=== PATIENT | male | born 1970 | race Two or more races ===

== ENCOUNTER 2017-03-14 00:08 | Observation (INO) | payer OTHER ==
[~2017-03-14] VITALS: Ht 175.3 cm; Wt 105.3 kg
[~2017-03-14 00:08] MED LIST: ASPI81TA9 PO; CARV6.25 PO; FURO40TA4 PO; GABA-585 PO; INSU300I SQ; LISI2.5T PO; SIMV40TA3 PO
[2017-03-14 00:43] LABS: BASO % 0 % (0-3); EOS % 2 % (0-3); HEMATOCRIT 46.2 % (39.0-53.0); HEMOGLOBIN 15.2 g/dL (13.0-17.5); LYMPH # 2.3 x10^3/uL (1.0-4.8); LYMPH % 25 % (24-48); MEAN CORPUSCULAR HEMOGLOBIN 27 pg (25-35); MEAN CORPUSCULAR HGB CONC 33 g/dL (31-37); MEAN CORPUSCULAR VOLUME 83 fL (79-100); MONO % 8 % (0-9); NEUT % 65 % (31-73); PLATELET COUNT 430 x10^3/uL (140-400); RED CELL DISTRIBUTION WIDTH 17.9 % (11.5-14.5); WHITE BLOOD COUNT 9.2 x10^3/uL (4.0-11.0)
[2017-03-14 00:53] LABS: CALCIUM 8.6 mg/dL (8.5-10.1); CREATININE 1.6 mg/dL (0.7-1.3); GFR 46.6; POTASSIUM 4.8 mmol/L (3.5-5.1)
[2017-03-14 00:58] LABS: ALBUMIN 3.1 g/dL (3.4-5.0); DIRECT BILIRUBIN 0.2 mg/dL (0.0-0.2); TOTAL BILIRUBIN 0.6 mg/dL (0.2-1.0); TOTAL PROTEIN 8.2 g/dL (6.4-8.2)
[2017-03-14] MEDS ORDERED: IPRATRPIUM/ALBUTEROL 0.5/2.5MG 3 ML NEBU. NEB ONE (01:00)
[2017-03-14] MEDS ORDERED: MORPHINE SULFATE 2 MG/ML DISP.SYRIN. IV PRN (02:00)
[2017-03-14] MEDS ORDERED: ONDANSETRON PF 4 MG/2 ML VIAL. IV PRN (02:00)
--- NOTE | 2017-03-14 02:18 | PHYS DOC ---
Past Medical History Past Medical History: CHF, Diabetes-Type II, High Cholesterol, Kidney Infection , [place], Pneumonia, Stroke, Other Additional Past Medical Histor: Abscess Past Surgical History: Other Additional Past Surgical Histo: triple bypass surgery; PICC line Alcohol Use: None Drug Use: None Adult General Chief Complaint Chief Complaint: SHORTNESS OF BREATH HPI HPI 46-year-old male presenting to the emergency department today with worsening shortness of breath with exertion leg swelling and abdominal swelling. This started approximately a week or 2 ago. Location lungs. Duration intermittent. Alleviated by rest. Review of systems is negative for chest pain abdominal pain nausea vomiting or diaphoresis. All other review of systems is negative unless otherwise noted in history of present illness. Review of Systems Review of Systems SEE ABOVE. Current Medications Current Medications Current Medications Medications (Trade) Dose Ordered Sig/Kailyn Start Time Stop Time Status Last Admin Dose Admin Albuterol/ Ipratropium (Duoneb) 3 ml 1X ONCE 03/14/17 01:00 03/14/17 01:01 DC 03/14/17 00:59 3 ML Furosemide (Lasix) 40 mg DAILY 03/14/17 02:30 Morphine Sulfate 2 mg PRN Q2HR PRN 03/14/17 02:00 03/15/17 01:59 Ondansetron HCl (Zofran) 4 mg PRN Q8HRS PRN 03/14/17 02:00 03/15/17 01:59 Allergies Allergies Allergies Coded Allergies Type Severity Reaction Last Updated Verified No Known Drug Allergies 10/16/16 No Physical Exam Physical Exam Constitutional: Well developed, well nourished, no acute distress, non-toxic appearance. HENT: Normocephalic, atraumatic, bilateral external ears normal, oropharynx moist, no oral exudates, nose normal. [] Eyes: PERRLA, EOMI, conjunctiva normal, no discharge. Neck: Normal range of motion, no tenderness, supple, no stridor. [] Cardiovascular:Heart rate regular rhythm, no murmur [] Lungs & Thorax: Crackles in the lungs bilaterally. Abdomen: Abdomen is mildly distended, nontender without rebound tenderness or guarding. Negative McBurney's point. Skin: Warm, dry, no erythema, no rash. [] Back: No tenderness, no CVA tenderness. Extremities: No tenderness, no cyanosis, no clubbing, ROM intact, 3+ edema. Neurologic: Alert and oriented X 3, normal motor function, normal sensory function, no focal deficits noted. Psychologic: Affect normal, judgement normal, mood normal. [] Current Patient Data Vital Signs Vital Signs Date Time Temp Pulse Resp B/P (MAP) Pulse Ox O2 Delivery O2 Flow Rate FiO2 03/14/17 01:00 98 Room Air 03/14/17 00:42 98.6 97 12 121/83 (96) 98.6 Lab Values Laboratory Tests Test 03/14/17 00:34 White Blood Count 9.2 x10^3/uL (4.0-11.0) Red Blood Count 5.60 x10^6/uL (4.30-5.70) Hemoglobin 15.2 g/dL (13.0-17.5) Hematocrit 46.2 % (39.0-53.0) Mean Corpuscular Volume 83 fL (79-100) Mean Corpuscular Hemoglobin 27 pg (25-35) Mean Corpuscular Hemoglobin Concent 33 g/dL (31-37) Red Cell Distribution Width 17.9 % (11.5-14.5) H Platelet Count 430 x10^3/uL (140-400) H Neutrophils (%) (Auto) 65 % (31-73) Lymphocytes (%) (Auto) 25 % (24-48) Monocytes (%) (Auto) 8 % (0-9) Eosinophils (%) (Auto) 2 % (0-3) Basophils (%) (Auto) 0 % (0-3) Neutrophils # (Auto) 5.9 x10^3uL (1.8-7.7) Lymphocytes # (Auto) 2.3 x10^3/uL (1.0-4.8) Monocytes # (Auto) 0.7 x10^3/uL (0.0-1.1) Eosinophils # (Auto) 0.2 x10^3/uL (0.0-0.7) Basophils # (Auto) 0.0 x10^3/uL (0.0-0.2) Sodium Level 139 mmol/L (136-145) Potassium Level 4.8 mmol/L (3.5-5.1) Chloride Level 104 mmol/L (98-107) Carbon Dioxide Level 27 mmol/L (21-32) Anion Gap 8 (6-14) Blood Urea Nitrogen 34 mg/dL (8-26) H Creatinine 1.6 mg/dL (0.7-1.3) H Estimated GFR (Cockcroft-Gault) 46.6 Glucose Level 127 mg/dL (70-99) H Calcium Level 8.6 mg/dL (8.5-10.1) Total Bilirubin 0.6 mg/dL (0.2-1.0) Direct Bilirubin 0.2 mg/dL (0.0-0.2) Aspartate Amino Transferase (AST) 31 U/L (15-37) Alanine Aminotransferase (ALT) 21 U/L (16-63) Alkaline Phosphatase 126 U/L (46-116) H Troponin I Quantitative 0.034 ng/mL (0.000-0.055) OJ-Olw-V-Type Natriuretic Peptide 7630 pg/mL (0-124) H Total Protein 8.2 g/dL (6.4-8.2) Albumin 3.1 g/dL (3.4-5.0) L Lipase 74 U/L (73-393) Laboratory Tests 03/14/17 00:34 Laboratory Tests 03/14/17 00:34 EKG EKG EKG shows sinus rhythm with a regular rate. [place] is mildly leftward. Intervals show normal limits. ST segments show minimal repolarization. Not consistent with ischemia. [] Radiology/Procedures Radiology/Procedures Cardiomegaly present with sternotomy wires. No obvious pneumothorax or infiltrate present. Minimal vascular congestion. Reviewed by myself [] Course & Med Decision Making Course & Med Decision Making Pertinent Labs and Imaging studies reviewed. (See chart for details) [] 41-year-old male presenting the emergency department with worsening shortness of breath pedal edema and abdominal swelling. Vital signs afebrile and saturating well on room air. Pertinent physical exam findings showed crackles in the lungs with a distended abdomen and 3+ edema in the legs. Concern for CHF exacerbation. ProBNP elevated. Otherwise CBC unremarkable. Chemistry panel shows elevated creatinine. Troponin within the reference range of normal. The patient was then admitted for further evaluation workup and care. He received IV diuretics in the emergency department prior to admission. Dragon Disclaimer Dragon Disclaimer This electronic medical record was generated, in whole or in part, using a voice recognition dictation system. Departure Departure Impression: Primary Impression: CHF (congestive heart failure) Additional Impression: Dyspnea Disposition: 09 ADMITTED INPATIENT Admitting Physician: Other (Dr. Balderas) Condition: IMPROVED Referrals: NO PCP (PCP) Problem Qualifiers LUCIO BREWSTER MD March 14, 2017 02:18
[2017-03-14] MEDS: FUROSEMIDE 40 MG/4 ML VIAL. IVP SCH ×2 (02:26→08:02)
--- NOTE | 2017-03-14 02:34 | ACF ---
Admission Forms Criteria HEART FAILURE: COMMON COMPLICATIONS Clinical Indications for Inpatient Care (Place 'X' for any and all applicable criteria): Ongoing inpatient care may be indicated for heart failure with ANY ONE of the following (1)(2)(3)(4)(5): [ ]I. Ongoing need for care for primary condition requiring frequent therapy adjustments because of changes in cardiac function (eg, drug dosage changes for drugs that are renally metabolized) [ ]II. New-onset heart failure [ ]III. Heart failure with decreased urine output not responsive to attempts to optimize volume status [ ]IV. Acute cardiac ischemia causing or associated with failure [X ]V. Complications of heart failure, including ANY ONE of the following: [ ]a) Pericardial effusion [ ]b) Symptomatic pleural effusion [ ]c) O2 saturation <90% or PO2 < 60 mm Hg (8.0 kPa) on room air or require baseline supplemental O2 [ ]d) Tachypnea [X ]e) Dyspnea [ ]f) Syncope [ ]g) Change in mental status [ ]h) Acute renal insufficiency that is severe (reduction of more than 50% in estimated glomerular filtration rate from baseline) or progressive reduction of more than 25% in estimated glomerular filtration rate from baseline, with creatinine continuing to rise) [ ]i) Hemodynamic instability [ ]j) Anasarca [ ]k) Clinically significant metabolic abnormalities due to heart failure (eg, new-onset metabolic acidosis) Extended stay beyond goal length of stay for primary condition may be needed until ALL of the following are present(1)(3): [ ]a) Stable and effective diuretic regimen established (or patient on stable dialysis regimen if in chronic renal failure) [ ]b) Breathing comfortably at rest [ ]c) Saturation of arterial oxygen greater than 90% or at acceptable baseline [ ]d) Pulmonary edema absent or improved [ ]e) Hemodynamic stability [ ]f) Volume status acceptable on oral medication [ ]g) Peripheral or sacral edema absent or improved [ ]h) Renal function stable and manageable at a lower level of care [ ]i) Complications (eg, pleural effusion) resolved or manageable at a lower level of care [ ]j) Patient or caregiver has received written discharge instructions or educational material addressing activity level, diet, discharge medications, follow-up appointment, weight monitoring, and what to do if symptoms worsen The original [facility] content created by [employer] has been revised. The portions of the content which have been revised are identified through the use of italic text or in bold, and [facility] has neither reviewed nor approved the modified material.All other unmodified content is copyright [facility]. Please see references footnoted in the original [facility] edition 2016 Admission Criteria Met?: Yes CONSTANTIN AUSTIN March 14, 2017 02:34
[2017-03-14 03:00] VITALS: BP 135/86
[2017-03-14 07:00] VITALS: BP 123/92
--- NOTE | 2017-03-14 07:53 | RAD ---
Examination: Single frontal view chest History: History of shortness of breath, chest pain Comparison: 10/14/2016 Findings: Mild cardiomegaly is again identified. Minimal prominence of bilateral interstitial lung markings. There is no acute infiltrate or visualized pneumothorax identified. Impression: 1. Mild cardiomegaly with minimal prominent bilateral interstitial lung markings could be mild congestive changes.
[2017-03-14 11:00] VITALS: BP 126/88
[2017-03-14] MEDS ORDERED: FUROSEMIDE 40 MG/4 ML VIAL. IVP ONE (11:15)
[2017-03-14] MEDS ORDERED: METOPROLOL SUCC 24HR ER 25 MG TAB.ER.24H. PO ONE (11:15)
--- NOTE | 2017-03-14 12:06 | CONS ---
DATE OF CONSULTATION: 03/14/2017 REASON FOR CONSULTATION: Heart failure. HISTORY OF PRESENT ILLNESS: The patient is a pleasant 46-year-old gentleman, who presents to the hospital in the setting of dyspnea. He was admitted to the hospital on 10/2016 for zsvfc-zo-ityciea decompensated heart failure. Since then apparently, he has not been taking his medications regularly and has had decreased urine output and also weight gain of considerable amount over the last 3 months. In this setting, he arrived to the hospital and noted to have an elevated BNP greater than 7000 and was given intravenous Lasix and reports he feels better today. In speaking with the patient, he states that he has not really compliant with medications and is off his skip doses unfortunately due to his social situation. He has also been not compliant with dietary restriction such a sodium restriction. PAST MEDICAL HISTORY: 1. Coronary artery disease, status post 3-vessel bypass at [facility] in 2013. 2. Ischemic cardiomyopathy with ejection fraction of 25% on stress testing last year at [facility]. 3. COPD. 4. Peptic ulcer disease. 5. Anxiety. 6. Renal insufficiency, chronic. PAST SURGICAL HISTORY: As noted above. FAMILY HISTORY: He is adopted and his family history is unknown. SOCIAL HISTORY: The patient does smoke less than 1 pack per day. He denies any excessive alcohol use. He does not use illicit drugs. He lives with his friends. He currently has a significant other, who is his girlfriend. HOME CARDIOVASCULAR MEDICATIONS: Currently unknown. REVIEW OF SYSTEMS: Negative for 10 out of 14 systems reviewed, unless otherwise mentioned above in HPI. PHYSICAL EXAMINATION: VITAL SIGNS: Afebrile, 88, 20, 123/92, 98% on 1 liter nasal cannula. GENERAL: He is alert and oriented, in no acute distress. HEAD AND NECK: Unremarkable. CARDIAC: Regular rate and rhythm without any murmurs, rubs or gallops. LUNGS: Clear to auscultation. ABDOMEN: Soft, obese, nontender, nondistended. EXTREMITIES: No clubbing, cyanosis or edema, 2+ radial and dorsalis pedis pulses. NEUROLOGIC: No focal deficits. MUSCULOSKELETAL: No trauma. DIAGNOSTIC STUDIES: Creatinine 1.6, troponin negative x 2, BNP 7630, hemoglobin 15.2, platelets 430. Chest x-ray reveals mild pulmonary vascular congestion. EKG is currently pending. IMPRESSION: 1. Mlavp-om-bqeibta decompensated heart failure in the setting of noncompliance and dietary issues. 2. Ischemic cardiomyopathy with previous stress test revealing fix defects. Currently, cardiac enzymes did not reveal any ischemic pathology. 3. Hypertension. RECOMMENDATIONS: 1. We will attempt to reinitiate a heart failure regimen for him including aspirin, long acting beta blockade and PAOLA inhibitors. We will ultimately also start him on spironolactone and diuretics. 2. The patient wanted to go home today, but he should be monitored overnight and continue diuresis and anticipate discharge in 24 hours. He will either follow up with us or at [facility] and he was given office information. Thank you for this consultation. TUAN VALADEZ MD DR: BOOGIE/michael JOB#: [id number] / [id number] ASAEL
[2017-03-14] MEDS: LISINOPRIL 5 MG TABLET. PO SCH (12:16)
[2017-03-14] MEDS: ASPIRIN ENTERIC COATED 81 MG TABLET.DR. PO SCH (12:16)
[2017-03-14] MEDS: GABAPENTIN 100 MG CAPSULE. PO SCH ×2 (12:16→20:02)
[2017-03-14] MEDS: SPIRONOLACTONE 25 MG TABLET PO SCH (12:17)
[2017-03-14] MEDS: INSULIN DETEMIR 300 UNITS/3 ML INSULN.PEN. SQ SCH (12:24)
--- NOTE | 2017-03-14 12:55 | EKG ---
[facility] [address] [place] [address] Test Date: 2017-03-14 Test Time: 00:34:28 Pat Name: ZOIE ROSARIO Department: Room: 6 1 Gender: Male [place] Consultant: : 1970 Requested By: LUCIO BREWSTER Order Number: [id number] Reading MD: Yung Gorman Measurements Intervals [place] Rate: 96 P: 39 FL: 160 QRS: -47 QRSD: 108 T: 128 QT: 384 QTc: 492 Interpretive Statements SINUS RHYTHM LAFB Electronically Signed On 03-16-2017 9:54:16 CDT by Yung Gorman
[2017-03-14] MEDS: HYDROcodone/APAP 5/325MG 1 TAB TABLET PO PRN ×2 (14:52→20:03)
[2017-03-14 15:00] VITALS: BP 122/85
--- NOTE | 2017-03-14 15:40 | HP ---
ADMIT DATE: 03/14/2017 CHIEF COMPLAINT: Shortness of breath and edema. HISTORY OF PRESENT ILLNESS: The patient is a pleasant middle-aged male who presented with shortness of breath and edema. He has a known previous history of heart failure. He states he thinks he was told he has a 15% ejection fraction. While in the ER, he was noted to have elevated BNP and vascular congestion. We have admitted the patient. He is now being examined on the telemetry floor. We plan to consult Cardiology. PAST MEDICAL HISTORY: Noncompliance, CHF, diabetes, hyperlipidemia, kidney infections, myocardial infarction, pneumonia, stroke, abscesses. PAST SURGICAL HISTORY: Triple bypass surgery. ALLERGIES: None. FAMILY HISTORY: Coronary artery disease. SOCIAL HISTORY: He states he has been incarcerated for many years ____ a lot of his life. He is engaged. He used to smoke. He used to drink. I am not clear on whether he does drugs. REVIEW OF SYSTEMS: GENERAL: No history of weight change, weakness or fevers. SKIN: No bruising, hair changes or rashes. EYES: No blurred, double or loss of vision. NOSE AND THROAT: No history of nosebleeds, hoarseness or sore throat. HEART: No history of palpitations, chest pain or shortness of breath on exertion. LUNGS: He complains of shortness of breath. Denies cough, hemoptysis, or wheezing. GASTROINTESTINAL: Denies changes in appetite, nausea, vomiting, diarrhea or constipation. GENITOURINARY: No history of frequency, urgency, hesitancy or nocturia. NEUROLOGIC: Denies history of numbness, tingling, tremor or weakness. PSYCHIATRIC: No history of panic, anxiety or depression. ENDOCRINE: No history of heat or cold intolerance, polyuria or polydipsia. EXTREMITIES: He complains of edema. Denies muscle weakness, joint pain, pain on walking or stiffness. MEDICATIONS: Reviewed. Please refer to the MRAD. PHYSICAL EXAMINATION: VITAL SIGNS: Temperature afebrile, pulse 67, respirations 18, blood pressure 126/____. GENERAL: He is alert, cooperative. His girlfriend is present. HEART: Normal S1, S2 with a soft S3. LUNGS: Bibasilar crackles. ABDOMEN: Soft, positive bowel sounds. There is ascites. EXTREMITIES: 2+ edema. ENDOCRINE: No thyromegaly. LYMPHATICS: No cervical nodes. HEMATOPOIETIC: No bruising. LABORATORY DATA: BNP 7630. Troponin 0.034. Hematology normal other than a platelet count of 30. ASSESSMENT AND PLAN: Qrcym-vr-jrxvhej systolic and diastolic heart failure. The patient has been admitted. We will consult Cardiology. Serial enzymes, serial EKGs, cardiac monitoring, daily aspirin, continue home medicines, IV diuretics. PROGNOSIS: Guarded. CHANDLER MICHELLE DO DR: NICKO/michael JOB#: [id number] / [id number]
[2017-03-14 19:28] VITALS: BP 111/74
[2017-03-14] MEDS ORDERED: SIMVASTATIN 40 MG TABLET. PO SCH (21:00)
[2017-03-14] MEDS ORDERED: CARVEDILOL 6.25 MG TABLET. PO SCH (21:00)
[2017-03-14 22:37] VITALS: BP 120/76
[2017-03-15 03:33] LABS: BASO # 0.1 x10^3/uL (0.0-0.2); BASO % 1 % (0-3); EOS % 4 % (0-3); HEMATOCRIT 39.6 % (39.0-53.0); LYMPH # 2.5 x10^3/uL (1.0-4.8); LYMPH % 26 % (24-48); MEAN CORPUSCULAR HEMOGLOBIN 27 pg (25-35); MEAN CORPUSCULAR HGB CONC 33 g/dL (31-37); MEAN CORPUSCULAR VOLUME 82 fL (79-100); MONO % 9 % (0-9); NEUT % 60 % (31-73); PLATELET COUNT 380 x10^3/uL (140-400); RED BLOOD COUNT 4.83 x10^6/uL (4.30-5.70); RED CELL DISTRIBUTION WIDTH 17.7 % (11.5-14.5); WHITE BLOOD COUNT 9.6 x10^3/uL (4.0-11.0)
[2017-03-15 03:57] LABS: CALCIUM 8.1 mg/dL (8.5-10.1); CREATININE 1.7 mg/dL (0.7-1.3); GFR 43.4; POTASSIUM 3.9 mmol/L (3.5-5.1)
[2017-03-15 07:00] VITALS: BP 122/89
[2017-03-15] MEDS: ASPIRIN ENTERIC COATED 81 MG TABLET.DR. PO SCH (08:23)
[2017-03-15] MEDS: GABAPENTIN 100 MG CAPSULE. PO SCH (08:24)
[2017-03-15] MEDS: SPIRONOLACTONE 25 MG TABLET PO SCH (08:24)
[2017-03-15] MEDS: LISINOPRIL 5 MG TABLET. PO SCH (08:24)
[2017-03-15 08:25] VITALS: BP 122/89
[2017-03-15] MEDS: INSULIN DETEMIR 300 UNITS/3 ML INSULN.PEN. SQ SCH (08:31)
[2017-03-15] MEDS ORDERED: LISI-338 PO (08:54)
[2017-03-15] MEDS ORDERED: SPIR25TA PO (08:54)
[2017-03-15] MEDS ORDERED: FURO-68 PO (08:54)
[2017-03-15] MEDS ORDERED: GABA-585 PO (08:54)
[2017-03-15] MEDS ORDERED: METO25TA9 PO (08:54)
[2017-03-15] MEDS ORDERED: ASPI81TA2 PO (08:54)
--- NOTE | 2017-03-15 08:58 | PDOC3 ---
Discharge Summary Visit Information Date of Admission: March 14, 2017 Date of Discharge: March 15, 2017 Admitting Diagnosis Comment: 1. Aljik-au-nwtboaq decompensated heart failure in the setting of noncompliance and dietary issues. 2. Ischemic cardiomyopathy with previous stress test revealing fix defects. Currently, cardiac enzymes did not reveal any ischemic pathology. 3. Hypertension. 4. Coronary artery disease, status post 3-vessel bypass at [facility] in 2013. 5. Ischemic cardiomyopathy with ejection fraction of 25% on stress testing last year at [facility]. 6. COPD. 7. Peptic ulcer disease. 8. Anxiety. 9. Renal insufficiency, chronic. Final Diagnosis Problems Medical Problems: (1) CHF (congestive heart failure) Status: Acute (2) Dyspnea Status: Acute Brief Hospital Course Allergies Allergies Coded Allergies Type Severity Reaction Last Updated Verified No Known Drug Allergies 10/16/16 No Vital Signs Vital Signs Date Time Temp Pulse Resp B/P (MAP) Pulse Ox O2 Delivery O2 Flow Rate FiO2 03/15/17 08:25 84 122/89 03/15/17 08:00 Room Air 1.0 03/15/17 07:00 97.4 16 98 97.4 Lab Results Laboratory Tests Test 03/14/17 00:34 03/14/17 07:18 03/14/17 08:00 03/14/17 11:38 White Blood Count 9.2 x10^3/uL (4.0-11.0) Red Blood Count 5.60 x10^6/uL (4.30-5.70) Hemoglobin 15.2 g/dL (13.0-17.5) Hematocrit 46.2 % (39.0-53.0) Mean Corpuscular Volume 83 fL (79-100) Mean Corpuscular Hemoglobin 27 pg (25-35) Mean Corpuscular Hemoglobin Concent 33 g/dL (31-37) Red Cell Distribution Width 17.9 % (11.5-14.5) Platelet Count 430 x10^3/uL (140-400) Neutrophils (%) (Auto) 65 % (31-73) Lymphocytes (%) (Auto) 25 % (24-48) Monocytes (%) (Auto) 8 % (0-9) Eosinophils (%) (Auto) 2 % (0-3) Basophils (%) (Auto) 0 % (0-3) Neutrophils # (Auto) 5.9 x10^3uL (1.8-7.7) Lymphocytes # (Auto) 2.3 x10^3/uL (1.0-4.8) Monocytes # (Auto) 0.7 x10^3/uL (0.0-1.1) Eosinophils # (Auto) 0.2 x10^3/uL (0.0-0.7) Basophils # (Auto) 0.0 x10^3/uL (0.0-0.2) Sodium Level 139 mmol/L (136-145) Potassium Level 4.8 mmol/L (3.5-5.1) Chloride Level 104 mmol/L (98-107) Carbon Dioxide Level 27 mmol/L (21-32) Anion Gap 8 (6-14) Blood Urea Nitrogen 34 mg/dL (8-26) Creatinine 1.6 mg/dL (0.7-1.3) Estimated GFR (Cockcroft-Gault) 46.6 Glucose Level 127 mg/dL (70-99) Calcium Level 8.6 mg/dL (8.5-10.1) Total Bilirubin 0.6 mg/dL (0.2-1.0) Direct Bilirubin 0.2 mg/dL (0.0-0.2) Aspartate Amino Transf (AST/SGOT) 31 U/L (15-37) Alanine Aminotransferase (ALT/SGPT) 21 U/L (16-63) Alkaline Phosphatase 126 U/L (46-116) Troponin I Quantitative 0.034 ng/mL (0.000-0.055) 0.018 ng/mL (0.000-0.055) AG-Okr-I-Type Natriuretic Peptide 7630 pg/mL (0-124) Total Protein 8.2 g/dL (6.4-8.2) Albumin 3.1 g/dL (3.4-5.0) Lipase 74 U/L (73-393) Glucose (Fingerstick) 196 mg/dL (70-99) 175 mg/dL (70-99) Test 03/14/17 13:55 03/14/17 16:25 03/14/17 20:19 03/15/17 03:10 Troponin I Quantitative 0.022 ng/mL (0.000-0.055) Glucose (Fingerstick) 141 mg/dL (70-99) 133 mg/dL (70-99) White Blood Count 9.6 x10^3/uL (4.0-11.0) Red Blood Count 4.83 x10^6/uL (4.30-5.70) Hemoglobin 13.0 g/dL (13.0-17.5) Hematocrit 39.6 % (39.0-53.0) Mean Corpuscular Volume 82 fL (79-100) Mean Corpuscular Hemoglobin 27 pg (25-35) Mean Corpuscular Hemoglobin Concent 33 g/dL (31-37) Red Cell Distribution Width 17.7 % (11.5-14.5) Platelet Count 380 x10^3/uL (140-400) Neutrophils (%) (Auto) 60 % (31-73) Lymphocytes (%) (Auto) 26 % (24-48) Monocytes (%) (Auto) 9 % (0-9) Eosinophils (%) (Auto) 4 % (0-3) Basophils (%) (Auto) 1 % (0-3) Neutrophils # (Auto) 5.7 x10^3uL (1.8-7.7) Lymphocytes # (Auto) 2.5 x10^3/uL (1.0-4.8) Monocytes # (Auto) 0.9 x10^3/uL (0.0-1.1) Eosinophils # (Auto) 0.3 x10^3/uL (0.0-0.7) Basophils # (Auto) 0.1 x10^3/uL (0.0-0.2) Sodium Level 139 mmol/L (136-145) Potassium Level 3.9 mmol/L (3.5-5.1) Chloride Level 105 mmol/L (98-107) Carbon Dioxide Level 25 mmol/L (21-32) Anion Gap 9 (6-14) Blood Urea Nitrogen 38 mg/dL (8-26) Creatinine 1.7 mg/dL (0.7-1.3) Estimated GFR (Cockcroft-Gault) 43.4 Glucose Level 171 mg/dL (70-99) Calcium Level 8.1 mg/dL (8.5-10.1) Test 03/15/17 07:19 Glucose (Fingerstick) 125 mg/dL (70-99) Laboratory Tests Test 03/14/17 11:38 03/14/17 13:55 03/14/17 16:25 03/14/17 20:19 Glucose (Fingerstick) 175 mg/dL (70-99) 141 mg/dL (70-99) 133 mg/dL (70-99) Troponin I Quantitative 0.022 ng/mL (0.000-0.055) Test 03/15/17 03:10 03/15/17 07:19 White Blood Count 9.6 x10^3/uL (4.0-11.0) Red Blood Count 4.83 x10^6/uL (4.30-5.70) Hemoglobin 13.0 g/dL (13.0-17.5) Hematocrit 39.6 % (39.0-53.0) Mean Corpuscular Volume 82 fL (79-100) Mean Corpuscular Hemoglobin 27 pg (25-35) Mean Corpuscular Hemoglobin Concent 33 g/dL (31-37) Red Cell Distribution Width 17.7 % (11.5-14.5) Platelet Count 380 x10^3/uL (140-400) Neutrophils (%) (Auto) 60 % (31-73) Lymphocytes (%) (Auto) 26 % (24-48) Monocytes (%) (Auto) 9 % (0-9) Eosinophils (%) (Auto) 4 % (0-3) Basophils (%) (Auto) 1 % (0-3) Neutrophils # (Auto) 5.7 x10^3uL (1.8-7.7) Lymphocytes # (Auto) 2.5 x10^3/uL (1.0-4.8) Monocytes # (Auto) 0.9 x10^3/uL (0.0-1.1) Eosinophils # (Auto) 0.3 x10^3/uL (0.0-0.7) Basophils # (Auto) 0.1 x10^3/uL (0.0-0.2) Sodium Level 139 mmol/L (136-145) Potassium Level 3.9 mmol/L (3.5-5.1) Chloride Level 105 mmol/L (98-107) Carbon Dioxide Level 25 mmol/L (21-32) Anion Gap 9 (6-14) Blood Urea Nitrogen 38 mg/dL (8-26) Creatinine 1.7 mg/dL (0.7-1.3) Estimated GFR (Cockcroft-Gault) 43.4 Glucose Level 171 mg/dL (70-99) Calcium Level 8.1 mg/dL (8.5-10.1) Glucose (Fingerstick) 125 mg/dL (70-99) Brief Hospital Course is a 46 old [sex] who presented with SOA. Known CHF, CABG at a young age, still has visible scar. Supposed to follow with [facility] but non compliant with meds, NO diuretic, BB, Tino inhib on home med,.Needs all rx upon dc. Just stayed overnight with institution of CHF core meds and significantly better, All rx provided and heavy counselling done, ALso requests inc in gabapentin dose from 100 BID, will inc to 100 TID,. Known DM on insulin, BS ok COnsults: cards Proc; none DispO; home time 34 mins Discharge Information Condition at Discharge: Improved, Stable Follow Up: Weeks ([facility] or cards of choice) Disposition/Orders: D/C to Home Scheduled Carvedilol (Coreg), 1 TAB PO BID, (Reported) Gabapentin (Gabapentin), 100 MG PO BID, (Reported) Insulin Glargine,Hum.rec.anlog (Toujeo Solostar), 15 UNIT SQ DAILY, (Reported) Simvastatin (Simvastatin), 1 TAB PO QHS, (Reported) PAIGE LUNA MD March 15, 2017 08:58
[2017-03-15] MEDS ORDERED: METOPROLOL SUCC 24HR ER 25 MG TAB.ER.24H. PO SCH (09:00)
[2017-03-15] MEDS ORDERED: FUROSEMIDE 40 MG TABLET. PO SCH (09:00)
== END 2017-03-15 12:07 | disposition home or self-care (01) ==
LOC: ER 00:08 → 6 SOUTH 02:00
PROVIDERS: ADMIT Internal Medicine Hematology & Oncology; ATTEND Internal Medicine Hematology & Oncology
DX: I50.43 Acute on chronic combined systolic (congestive) and diastolic (congestive) heart failure (principal); I25.5 Ischemic cardiomyopathy; I13.0 Hypertensive heart and chronic kidney disease with heart failure and stage 1 through stage 4 chronic kidney disease, or unspecified chronic kidney disease; N18.9 Chronic kidney disease, unspecified; I25.10 Atherosclerotic heart disease of native coronary artery without angina pectoris; J44.9 Chronic obstructive pulmonary disease, unspecified; E11.22 Type 2 diabetes mellitus with diabetic chronic kidney disease; F41.9 Anxiety disorder, unspecified; E78.5 Hyperlipidemia, unspecified; E78.00 Pure hypercholesterolemia, unspecified; I25.2 Old myocardial infarction; F17.210 Nicotine dependence, cigarettes, uncomplicated; Z86.73 Personal history of transient ischemic attack (TIA), and cerebral infarction without residual deficits; Z79.4 Long term (current) use of insulin; Z95.1 Presence of aortocoronary bypass graft; Z87.11 Personal history of peptic ulcer disease; Z91.14 Patient's other noncompliance with medication regimen; Z91.19 Patient's noncompliance with other medical treatment and regimen; Z82.49 Family history of ischemic heart disease and other diseases of the circulatory system
CPT/HCPCS: 36415; 71010; 80048; 80076; 82947; 83690; 83880; 84484; 85027; 93005; 94640; 96372; 96374; 96376; 99285; G0378; J1815; J1940; J7620; G0379

== ENCOUNTER 2018-09-04 12:37 | Inpatient (IN) | payer OTHER ==
[~2018-09-04] VITALS: Ht 175.3 cm; Wt 83.9 kg
[~2018-09-04 12:37] MED LIST changes: +ASPI-612 PO; +ASPI-630 PO; -ASPI81TA9 PO; +FURO-68 PO; +LISI-338 PO; +METO-239 PO; +SPIR25TA PO
[2018-09-04] MEDS ORDERED: IV NORMAL SALINE 1000ML BAG 1,000 ML IV SCH (12:59)
[2018-09-04 13:14] LABS: BASO # 0.1 x10^3/uL (0.0-0.2); BASO % 1 % (0-3); EOS # 0.3 x10^3/uL (0.0-0.7); EOS % 4 % (0-3); HEMATOCRIT 48.2 % (39.0-53.0); LYMPH # 1.9 x10^3/uL (1.0-4.8); LYMPH % 25 % (24-48); MEAN CORPUSCULAR HEMOGLOBIN 31 pg (25-35); MEAN CORPUSCULAR HGB CONC 35 g/dL (31-37); MEAN CORPUSCULAR VOLUME 88 fL (79-100); MONO # 0.6 x10^3/uL (0.0-1.1); MONO % 8 % (0-9); NEUT # 4.5 x10^3uL (1.8-7.7); NEUT % 61 % (31-73); PLATELET COUNT 280 x10^3/uL (140-400); RED BLOOD COUNT 5.48 x10^6/uL (4.30-5.70); RED CELL DISTRIBUTION WIDTH 13.4 % (11.5-14.5); WHITE BLOOD COUNT 7.4 x10^3/uL (4.0-11.0)
[2018-09-04 13:20] LABS: AMPHETAMINE/METHAMPHETAMINE POS (NEG); BARBITURATES NEG (NEG); BENZODIAZEPINES NEG (NEG); BILIRUBIN,URINE NEGATIVE (NEG); CANNABINOIDS NEG (NEG); CLARITY,URINE CLEAR; COCAINE NEG (NEG); COLOR,URINE YELLOW; METHADONE NEG (NEG); NITRITE,URINE NEGATIVE (NEG); OPIATES NEG (NEG); PH,URINE 5.5; PHENCYCLIDINE NEG (NEG); PROTEIN,URINE 30 mg/dL (NEG-TRACE); UROBILINOGEN,URINE 0.2 mg/dL (0.2 mg/dL)
[2018-09-04 13:24] LABS: ANION GAP 8 (6-14); BLOOD UREA NITROGEN 22 mg/dL (8-26); BUN/CREATININE RATIO 16 (6-20); CALCIUM 9.3 mg/dL (8.5-10.1); CARBON DIOXIDE 30 mmol/L (21-32); CHLORIDE 98 mmol/L (98-107); CREATININE 1.4 mg/dL (0.7-1.3); GFR 54.1; GLUCOSE 368 mg/dL (70-99); POTASSIUM 4.3 mmol/L (3.5-5.1); SODIUM 136 mmol/L (136-145)
[2018-09-04 13:28] LABS: BACTERIA,URINE FEW /HPF (0-FEW); SQUAMOUS EPITHELIAL CELL,UR OCC /LPF
[2018-09-04 13:31] LABS: ALBUMIN 3.3 g/dL (3.4-5.0); ALBUMIN/GLOBULIN RATIO 0.6 (1.0-1.7); ALK PHOS 122 U/L (46-116); ALT (SGPT) 23 U/L (16-63); AST (SGOT) 15 U/L (15-37); CREATINE KINASE 60 U/L (39-308); LIPASE 225 U/L (73-393); MAGNESIUM 2.2 mg/dL (1.8-2.4); TOTAL BILIRUBIN 0.4 mg/dL (0.2-1.0); TOTAL PROTEIN 8.4 g/dL (6.4-8.2)
--- NOTE | 2018-09-04 13:35 | RAD ---
AP chest. HISTORY: Short of air AP view was taken of the chest. Lungs are clear. Heart is normal in size without heart failure. There is no effusion. The patient had previous bypass surgery. IMPRESSION: 1. No acute chest disease. Electronically signed by: Bassem Azevedo MD (09/04/2018 1:32 PM) [facility]
[2018-09-04 13:56] LABS: BASE EXCESS COOX 1 mmol/L (-3-3); HCO3 COOX 25 mmol/L (21-28); OXYHEMOGLOBIN 96.2 %; PCO2 COOX 40 mmHg (35-46); PO2 COOX 96 mmHg (75-108); SAT O2 COOX 98 % (92-99)
[2018-09-04 14:01] LABS: ACETONE NEG (NEG)
[2018-09-04] MEDS ORDERED: INSULIN REGULAR 100 UNIT/ML 3ML VIAL. IV ONE (14:30)
--- NOTE | 2018-09-04 14:40 | PHYS DOC ---
Past Medical History Past Medical History: CHF, CVA, Diabetes-Type I, Diabetes-Type II, High Cholesterol, Kidney Infection, [place], Pneumonia, Stroke, Other Additional Past Medical Histor: Abscess Past Surgical History: Other Additional Past Surgical Histo: triple bypass surgery; PICC line Alcohol Use: None Drug Use: None Adult General Chief Complaint Chief Complaint: HYPERGLYCEMIA HPI HPI Patient is a 47 year old male presented to ER today for evaluation of blurry vision, body aches, cramping in the lower extremities, general weakness, uncontrolled hypertension, uncontrolled blood sugar issue. Patient has history of insulin-dependent diabetic, history of coronary artery disease, history CHF, history hypertension. Patient had been out of medications for 3 months. Patient denies any chest pain, no abdominal pain, no cough. Review of Systems Review of Systems Constitutional: Denies fever or chills [] Eyes: Denies change in visual acuity, redness, or eye pain [] HENT: Denies nasal congestion or sore throat [] Respiratory: Denies cough or shortness of breath [] Cardiovascular: No additional information not addressed in HPI [] GI: Denies abdominal pain, nausea, vomiting, bloody stools or diarrhea [] : Denies dysuria or hematuria [] Musculoskeletal: Positive for muscle pain, legs cramping Integument: Denies rash or skin lesions [] Neurologic: Denies headache, focal weakness or sensory changes. POSITIVE FOR GENERALIZED WEAKNESS, BLURRY VISION Endocrine: Positive for polyuria and polydipsia [] All other systems were reviewed and found to be within normal limits, except as documented in this note. Current Medications Current Medications Current Medications Medications (Trade) Dose Ordered Sig/Kailyn Start Time Stop Time Status Last Admin Dose Admin Insulin Human Regular (HumuLIN R VIAL) 6 unit 1X ONCE 09/04/18 14:30 09/04/18 14:32 DC 09/04/18 15:29 6 UNIT Ondansetron HCl (Zofran) 4 mg PRN Q8HRS PRN 09/04/18 15:45 09/05/18 15:44 Sodium Chloride 1,000 ml @ 1,000 mls/hr Q1H 09/04/18 12:59 09/04/18 13:58 DC 09/04/18 13:18 1,000 MLS/HR Allergies Allergies Allergies Coded Allergies Type Severity Reaction Last Updated Verified No Known Drug Allergies 10/16/16 No Physical Exam Physical Exam Constitutional: Well developed, well nourished, appeared somnolent. HENT: Normocephalic, atraumatic, bilateral external ears normal, no oral exudates, nose normal, dried oral mucosa. Eyes: PERRLA, EOMI, conjunctiva normal, no discharge. [] Neck: Normal range of motion, no tenderness, supple, no stridor. [] Cardiovascular:Heart rate regular rhythm, no murmur [] Lungs & Thorax: Bilateral breath sounds clear to auscultation [] Abdomen: Bowel sounds normal, soft, no tenderness, no masses, no pulsatile masses. [] Skin: Warm, dry, no erythema, no rash. [] Back: No tenderness, no CVA tenderness. [] Extremities: No tenderness, no cyanosis, no clubbing, ROM intact, no edema. [] Neurologic: Alert and oriented X 3, normal motor function, normal sensory function, no focal deficits noted. [] Psychologic: Affect normal, judgement normal, mood normal. [] Current Patient Data Vital Signs Vital Signs Date Time Temp Pulse Resp B/P (MAP) Pulse Ox O2 Delivery O2 Flow Rate FiO2 09/04/18 15:30 87 20 145/88 (107) 98 Room Air 09/04/18 13:00 97.9 97.9 Lab Values Laboratory Tests Test 09/04/18 12:50 09/04/18 12:59 09/04/18 13:00 Urine Collection Type Unknown Urine Color Yellow Urine Clarity Clear Urine pH 5.5 Urine Specific [place] >=1.030 Urine Protein 30 mg/dL (NEG-TRACE) Urine Glucose (UA) >=1000 mg/dL (NEG) Urine Ketones (Stick) Negative mg/dL (NEG) Urine Blood Small (NEG) Urine Nitrite Negative (NEG) Urine Bilirubin Negative (NEG) Urine Urobilinogen Dipstick 0.2 mg/dL (0.2 mg/dL) Urine Leukocyte Esterase Negative (NEG) Urine RBC 3-5 /HPF (0-2) Urine WBC 1-4 /HPF (0-4) Urine Squamous Epithelial Cells Occ /LPF Urine Bacteria Few /HPF (0-FEW) Urine Mucus Slight /LPF Urine Opiates Screen Neg (NEG) Urine Methadone Screen Neg (NEG) Urine Barbiturates Neg (NEG) Urine Phencyclidine Screen Neg (NEG) Urine Amphetamine/Methamphetamine Pos (NEG) Urine Benzodiazepines Screen Neg (NEG) Urine Cocaine Screen Neg (NEG) Urine Cannabinoids Screen Neg (NEG) Urine Ethyl Alcohol Neg (NEG) O2 Saturation 98 % (92-99) Arterial Blood pH 7.42 (7.35-7.45) Arterial Blood pCO2 at Patient Temp 40 mmHg (35-46) Arterial Blood pO2 at Patient Temp 96 mmHg (75-108) Arterial Blood HCO3 25 mmol/L (21-28) Arterial Blood Base Excess 1 mmol/L (-3-3) Oxyhemoglobin 96.2 % Methemoglobin 0.0 % (0.0-1.9) Carbon Monoxide, Quantitative 1.3 % (0.0-1.9) FiO2 21 White Blood Count 7.4 x10^3/uL (4.0-11.0) Red Blood Count 5.48 x10^6/uL (4.30-5.70) Hemoglobin 17.0 g/dL (13.0-17.5) Hematocrit 48.2 % (39.0-53.0) Mean Corpuscular Volume 88 fL (79-100) Mean Corpuscular Hemoglobin 31 pg (25-35) Mean Corpuscular Hemoglobin Concent 35 g/dL (31-37) Red Cell Distribution Width 13.4 % (11.5-14.5) Platelet Count 280 x10^3/uL (140-400) Neutrophils (%) (Auto) 61 % (31-73) Lymphocytes (%) (Auto) 25 % (24-48) Monocytes (%) (Auto) 8 % (0-9) Eosinophils (%) (Auto) 4 % (0-3) H Basophils (%) (Auto) 1 % (0-3) Neutrophils # (Auto) 4.5 x10^3uL (1.8-7.7) Lymphocytes # (Auto) 1.9 x10^3/uL (1.0-4.8) Monocytes # (Auto) 0.6 x10^3/uL (0.0-1.1) Eosinophils # (Auto) 0.3 x10^3/uL (0.0-0.7) Basophils # (Auto) 0.1 x10^3/uL (0.0-0.2) Prothrombin Time 13.0 SEC (11.7-14.0) Prothrombin Time INR 1.0 (0.8-1.1) Sodium Level 136 mmol/L (136-145) Potassium Level 4.3 mmol/L (3.5-5.1) Chloride Level 98 mmol/L (98-107) Carbon Dioxide Level 30 mmol/L (21-32) Anion Gap 8 (6-14) Blood Urea Nitrogen 22 mg/dL (8-26) Creatinine 1.4 mg/dL (0.7-1.3) H Estimated GFR (Cockcroft-Gault) 54.1 BUN/Creatinine Ratio 16 (6-20) Glucose Level 368 mg/dL (70-99) H Calcium Level 9.3 mg/dL (8.5-10.1) Magnesium Level 2.2 mg/dL (1.8-2.4) Total Bilirubin 0.4 mg/dL (0.2-1.0) Aspartate Amino Transferase (AST) 15 U/L (15-37) Alanine Aminotransferase (ALT) 23 U/L (16-63) Alkaline Phosphatase 122 U/L (46-116) H Creatine Kinase 62 U/L (39-308) Creatine Kinase MB (Mass) 3.3 ng/mL (0.0-3.6) Creatine Kinase MB Relative Index 5.3 % (0-4) H Troponin I Quantitative < 0.017 ng/mL (0.000-0.055) MG-Ysl-Q-Type Natriuretic Peptide 1720 pg/mL (0-124) H Total Protein 8.4 g/dL (6.4-8.2) H Albumin 3.3 g/dL (3.4-5.0) L Albumin/Globulin Ratio 0.6 (1.0-1.7) L Lipase 225 U/L (73-393) Acetone Level Neg (NEG) Laboratory Tests 09/04/18 13:00 Laboratory Tests 09/04/18 13:00 EKG EKG EKG: RATE OF 87 BPM, WPW PATTERN. NO STEMI. Radiology/Procedures Radiology/Procedures [][facility] [address] [place] [address] IMAGING REPORT Signed PATIENT: ZOIE ROSARIO ACCOUNT: [id number] : 1970 LOCATION: ER AGE: 47 SEX: M EXAM STATUS: PRE ER ORD. PHYSICIAN: DEMETRI BRAY DO REASON: soa PROCEDURE: PORTABLE CHEST 1V AP chest. HISTORY: Short of air AP view was taken of the chest. Lungs are clear. Heart is normal in size without heart failure. There is no effusion. The patient had previous bypass surgery. IMPRESSION: 1. No acute chest disease. Electronically signed by: Bassem Azevedo MD (09/04/2018 1:32 PM) [facility] DICTATED and SIGNED BY: BASSEM AZEVEDO MD DATE: 09/04/18 9170 Course & Med Decision Making Course & Med Decision Making Pertinent Labs and Imaging studies reviewed. (See chart for details) [] Dragon Disclaimer Dragon Disclaimer This electronic medical record was generated, in whole or in part, using a voice recognition dictation system. Departure Departure Impression: Primary Impression: Hyperglycemia Additional Impressions: HTN (hypertension) Diabetic neuropathy Disposition: ADMITTED INPATIENT Admitting Physician: Vasquez Valdez Condition: STABLE Referrals: NO PCP (PCP) Problem Qualifiers DEMETRI BRAY DO Sep 04, 2018 14:40
[2018-09-04] MEDS ORDERED: ONDANSETRON PF 4 MG/2 ML VIAL. IV PRN (15:45)
[2018-09-04 17:00] VITALS: BP 113/80
--- NOTE | 2018-09-04 17:35 | EKG ---
[facility] [address] [place] [address] Test Date: 2018-09-04 Test Time: 13:03:21 Pat Name: ZOIE ROSARIO Department: Room: 524 1 Gender: M Billing Supervisor: REX : 1970 Requested By: DEMETRI BRAY Order Number: [id number] Reading MD: Yung Gorman MD Measurements Intervals [place] Rate: 87 P: 59 UT: 134 QRS: -44 QRSD: 132 T: 128 QT: 402 QTc: 484 Interpretive Statements SINUS RHYTHM LEFT ATRIAL ABNORMALITY LAFB PRIOR SEPTAL INFARCT NON-SPECIFIC ST/T CHANGES Electronically Signed On 09-05-2018 15:22:16 STAFFING ACCOUNT MANAGER by Yung Gorman MD
[2018-09-04] MEDS ORDERED: DEXTROSE 50% 25 GM / 50ML DISP.SYRIN. IV PRN (18:30)
[2018-09-04 19:00] VITALS: BP 124/75
--- NOTE | 2018-09-04 19:40 | PDOC1 ---
History and Physical Date of Admission Date of Admission DATE: 09/04/18 TIME: 19:40 Identification/Chief Complaint Chief Complaint SEEN IN ER 47 year old male presented to ER today for evaluation of blurry vision, body aches, cramping in the lower extremities, general weakness, uncontrolled hypertension, uncontrolled blood sugar issue. Patient has history of insulin-dependent diabetic, history of coronary artery disease, history CHF, history hypertension. USING METH out of medications for 3 months. Patient denies any chest pain, no abdominal pain, no cough. Past Medical History Past Medical History Past Medical History Past Medical History: CHF, CVA, Diabetes-Type I, Diabetes-Type II, High Cholesterol, Kidney Infection, [place], Pneumonia, Stroke, Other Additional Past Medical Histor: Abscess Past Surgical History: Other Additional Past Surgical Histo: triple bypass surgery; PICC line Alcohol Use: None Drug Use: METH FAMILY HX HTN Cardiovascular: CAD Pulmonary: COPD GI: Peptic Ulcer disease Heme/Onc: No pertinent hx Hepatobiliary: No pertinent hx Psych: Anxiety Musculoskeletal: low back pain Renal/: Chronic renal insuff Endocrine: No pertinent hx Past Surgical History Past Surgical History: CABG Family History Family History: Adopted Social History Smoke: 1 pack per day ALCOHOL: none Drugs: None, Crystal meth Current Problem List Problem List Problems Medical Problems: (1) Diabetic neuropathy Status: Acute (2) HTN (hypertension) Status: Acute (3) Hyperglycemia Status: Acute Current Medications Current Medications Current Medications Sodium Chloride 1,000 ml @ 1,000 mls/hr Q1H IV Last administered on 09/04/18at 13:18; Start 09/04/18 at 12:59; Stop 09/04/18 at 13:58; Status DC Insulin Human Regular (HumuLIN R VIAL) 6 unit 1X ONCE IV Last administered on 09/04/18at 15:29; Start 09/04/18 at 14:30; Stop 09/04/18 at 14:32; Status DC Ondansetron HCl (Zofran) 4 mg PRN Q8HRS PRN IV NAUSEA/VOMITING; Start 09/04/18 at 15:45; Stop 09/05/18 at 15:44 Insulin Human Lispro (HumaLOG) 0-5 UNITS TIDWMEALS SQ ; Start 09/05/18 at 08:00 Dextrose (Dextrose 50%-Water Syringe) 12.5 gm PRN Q15MIN PRN IV SEE COMMENTS; Start 09/04/18 at 18:30 Active Scripts Active Aldactone (Spironolactone) 25 Mg Tablet 1 Tab PO DAILY Gabapentin 100 Mg Capsule 100 Mg PO TID 60 Days Lisinopril 5 Mg Tablet 1 Tab PO DAILY Lasix (Furosemide) 40 Mg Tablet 1 Tab PO DAILY Metoprolol Succinate ( Xl ) (Metoprolol Succinate) 25 Mg Tab.er.24h 1 Tab PO DAILY Aspirin 81 Mg Tab.chew 1 Tab PO DAILY Reported Yury Lancasternuzhatar (Insulin Glargine,Hum.rec.anlog) 300 Unit/1 Ml Insuln.pen 15 Unit SQ DAILY Simvastatin 40 Mg Tablet 1 Tab PO QHS Allergies Allergies: Coded Allergies: No Known Drug Allergies (Unverified , 10/16/16) ROS General: YES: Fatigue Hematological and Lymphatic: No: Bleeding Problems, Blood Clots, Blood Transfusions, Brusing, Night Sweats, Pallor, Swollen Lymph Nodes, Other Musculoskeletal: Yes Gait Disturbance, Yes Muscle Pain Neurological: Yes Behavorial Changes, Yes Gait Disturbance Physical Exam Physical Exam Review of Systems Review of Systems Constitutional: Denies fever or chills [] Eyes: Denies change in visual acuity, redness, or eye pain [] HENT: Denies nasal congestion or sore throat [] Respiratory: Denies cough or shortness of breath [] Cardiovascular: No additional information not addressed in HPI [] GI: Denies abdominal pain, nausea, vomiting, bloody stools or diarrhea [] : Denies dysuria or hematuria [] Musculoskeletal: Positive for muscle pain, legs cramping SEVERE Integument: Denies rash or skin lesions [] Neurologic: Denies headache, focal weakness or sensory changes. POSITIVE FOR GENERALIZED WEAKNESS, BLURRY VISION Endocrine: Positive for polyuria and polydipsia [] 14 PT systems were reviewed and found to be within normal limits, except as documented Current Medications Current Medications Current Medications Medications (Trade) Dose Ordered Sig/Kailyn Start Time Stop Time Status Last Admin Dose Admin Insulin Human Regular (HumuLIN R VIAL) 6 unit 1X ONCE 09/04/18 14:30 09/04/18 14:32 DC 09/04/18 15:29 6 UNIT Ondansetron HCl (Zofran) 4 mg PRN Q8HRS PRN 09/04/18 15:45 09/05/18 15:44 Sodium Chloride 1,000 ml @ 1,000 mls/hr Q1H 09/04/18 12:59 09/04/18 13:58 DC 09/04/18 13:18 1,000 MLS/HR Allergies Allergies Allergies Coded Allergies Type Severity Reaction Last Updated Verified No Known Drug Allergies 10/16/16 No Physical Exam Physical Exam Constitutional: Well developed, well nourished, appeared somnolent. HENT: Normocephalic, atraumatic, bilateral external ears normal, no oral exudates, nose normal, dried oral mucosa. Eyes: PERRLA, EOMI, conjunctiva normal, no discharge. [] Neck: Normal range of motion, no tenderness, supple, no stridor. [] Cardiovascular:Heart rate regular rhythm, no murmur [] Lungs & Thorax: Bilateral breath sounds clear to auscultation [] Abdomen: Bowel sounds normal, soft, no tenderness, no masses, no pulsatile masses. [] Skin: Warm, dry, no erythema, no rash. [] Back: No tenderness, no CVA tenderness. [] Extremities: No tenderness, no cyanosis, no clubbing, ROM intact, no edema. [] Neurologic: Alert and oriented X 3, normal motor function, normal sensory function, no focal deficits noted. [] Psychologic: Affect ANXIOUS, judgement POOR mood normal. [] General: Alert, Oriented X3, Cooperative, moderate distress HEENT: EOMI Heart: RRR, no gallops Breasts: Not examined Abdomen: Soft Rectal Exam: not examined Neuro: Normal speech, Cranial nerves 3-12 NL Vitals Vitals Vital Signs Date Time Temp Pulse Resp B/P (MAP) Pulse Ox O2 Delivery O2 Flow Rate FiO2 09/04/18 17:30 Room Air 09/04/18 17:00 98.4 89 18 113/80 (91) 98 98.4 Labs Labs Laboratory Tests Test 09/04/18 12:50 09/04/18 12:59 09/04/18 13:00 09/04/18 16:27 Urine Collection Type Unknown Urine Color Yellow Urine Clarity Clear Urine pH 5.5 Urine Specific [place] >=1.030 Urine Protein 30 mg/dL (NEG-TRACE) Urine Glucose (UA) >=1000 mg/dL (NEG) Urine Ketones (Stick) Negative mg/dL (NEG) Urine Blood Small (NEG) Urine Nitrite Negative (NEG) Urine Bilirubin Negative (NEG) Urine Urobilinogen Dipstick 0.2 mg/dL (0.2 mg/dL) Urine Leukocyte Esterase Negative (NEG) Urine RBC 3-5 /HPF (0-2) Urine WBC 1-4 /HPF (0-4) Urine Squamous Epithelial Cells Occ /LPF Urine Bacteria Few /HPF (0-FEW) Urine Mucus Slight /LPF Urine Opiates Screen Neg (NEG) Urine Methadone Screen Neg (NEG) Urine Barbiturates Neg (NEG) Urine Phencyclidine Screen Neg (NEG) Urine Amphetamine/Methamphetamine Pos (NEG) Urine Benzodiazepines Screen Neg (NEG) Urine Cocaine Screen Neg (NEG) Urine Cannabinoids Screen Neg (NEG) Urine Ethyl Alcohol Neg (NEG) O2 Saturation 98 % (92-99) Arterial Blood pH 7.42 (7.35-7.45) Arterial Blood pCO2 at Patient Temp 40 mmHg (35-46) Arterial Blood pO2 at Patient Temp 96 mmHg (75-108) Arterial Blood HCO3 25 mmol/L (21-28) Arterial Blood Base Excess 1 mmol/L (-3-3) Oxyhemoglobin 96.2 % Methemoglobin 0.0 % (0.0-1.9) Carbon Monoxide, Quantitative 1.3 % (0.0-1.9) FiO2 21 White Blood Count 7.4 x10^3/uL (4.0-11.0) Red Blood Count 5.48 x10^6/uL (4.30-5.70) Hemoglobin 17.0 g/dL (13.0-17.5) Hematocrit 48.2 % (39.0-53.0) Mean Corpuscular Volume 88 fL (79-100) Mean Corpuscular Hemoglobin 31 pg (25-35) Mean Corpuscular Hemoglobin Concent 35 g/dL (31-37) Red Cell Distribution Width 13.4 % (11.5-14.5) Platelet Count 280 x10^3/uL (140-400) Neutrophils (%) (Auto) 61 % (31-73) Lymphocytes (%) (Auto) 25 % (24-48) Monocytes (%) (Auto) 8 % (0-9) Eosinophils (%) (Auto) 4 % (0-3) Basophils (%) (Auto) 1 % (0-3) Neutrophils # (Auto) 4.5 x10^3uL (1.8-7.7) Lymphocytes # (Auto) 1.9 x10^3/uL (1.0-4.8) Monocytes # (Auto) 0.6 x10^3/uL (0.0-1.1) Eosinophils # (Auto) 0.3 x10^3/uL (0.0-0.7) Basophils # (Auto) 0.1 x10^3/uL (0.0-0.2) Prothrombin Time 13.0 SEC (11.7-14.0) Prothromb Time International Ratio 1.0 (0.8-1.1) Sodium Level 136 mmol/L (136-145) Potassium Level 4.3 mmol/L (3.5-5.1) Chloride Level 98 mmol/L (98-107) Carbon Dioxide Level 30 mmol/L (21-32) Anion Gap 8 (6-14) Blood Urea Nitrogen 22 mg/dL (8-26) Creatinine 1.4 mg/dL (0.7-1.3) Estimated GFR (Cockcroft-Gault) 54.1 BUN/Creatinine Ratio 16 (6-20) Glucose Level 368 mg/dL (70-99) Glucose (Fingerstick) 397 mg/dL (70-99) 161 mg/dL (70-99) Calcium Level 9.3 mg/dL (8.5-10.1) Magnesium Level 2.2 mg/dL (1.8-2.4) Total Bilirubin 0.4 mg/dL (0.2-1.0) Aspartate Amino Transf (AST/SGOT) 15 U/L (15-37) Alanine Aminotransferase (ALT/SGPT) 23 U/L (16-63) Alkaline Phosphatase 122 U/L (46-116) Creatine Kinase 62 U/L (39-308) Creatine Kinase MB (Mass) 3.3 ng/mL (0.0-3.6) Creatine Kinase MB Relative Index 5.3 % (0-4) Troponin I Quantitative < 0.017 ng/mL (0.000-0.055) MM-[id number]-Type Natriuretic Peptide 1720 pg/mL (0-124) Total Protein 8.4 g/dL (6.4-8.2) Albumin 3.3 g/dL (3.4-5.0) Albumin/Globulin Ratio 0.6 (1.0-1.7) Lipase 225 U/L (73-393) Acetone Level Neg (NEG) Test 09/04/18 17:19 Glucose (Fingerstick) 123 mg/dL (70-99) Laboratory Tests Test 09/04/18 12:50 09/04/18 12:59 09/04/18 13:00 09/04/18 16:27 Urine Collection Type Unknown Urine Color Yellow Urine Clarity Clear Urine pH 5.5 Urine Specific [place] >=1.030 Urine Protein 30 mg/dL (NEG-TRACE) Urine Glucose (UA) >=1000 mg/dL (NEG) Urine Ketones (Stick) Negative mg/dL (NEG) Urine Blood Small (NEG) Urine Nitrite Negative (NEG) Urine Bilirubin Negative (NEG) Urine Urobilinogen Dipstick 0.2 mg/dL (0.2 mg/dL) Urine Leukocyte Esterase Negative (NEG) Urine RBC 3-5 /HPF (0-2) Urine WBC 1-4 /HPF (0-4) Urine Squamous Epithelial Cells Occ /LPF Urine Bacteria Few /HPF (0-FEW) Urine Mucus Slight /LPF Urine Opiates Screen Neg (NEG) Urine Methadone Screen Neg (NEG) Urine Barbiturates Neg (NEG) Urine Phencyclidine Screen Neg (NEG) Urine Amphetamine/Methamphetamine Pos (NEG) Urine Benzodiazepines Screen Neg (NEG) Urine Cocaine Screen Neg (NEG) Urine Cannabinoids Screen Neg (NEG) Urine Ethyl Alcohol Neg (NEG) O2 Saturation 98 % (92-99) Arterial Blood pH 7.42 (7.35-7.45) Arterial Blood pCO2 at Patient Temp 40 mmHg (35-46) Arterial Blood pO2 at Patient Temp 96 mmHg (75-108) Arterial Blood HCO3 25 mmol/L (21-28) Arterial Blood Base Excess 1 mmol/L (-3-3) Oxyhemoglobin 96.2 % Methemoglobin 0.0 % (0.0-1.9) Carbon Monoxide, Quantitative 1.3 % (0.0-1.9) FiO2 21 White Blood Count 7.4 x10^3/uL (4.0-11.0) Red Blood Count 5.48 x10^6/uL (4.30-5.70) Hemoglobin 17.0 g/dL (13.0-17.5) Hematocrit 48.2 % (39.0-53.0) Mean Corpuscular Volume 88 fL (79-100) Mean Corpuscular Hemoglobin 31 pg (25-35) Mean Corpuscular Hemoglobin Concent 35 g/dL (31-37) Red Cell Distribution Width 13.4 % (11.5-14.5) Platelet Count 280 x10^3/uL (140-400) Neutrophils (%) (Auto) 61 % (31-73) Lymphocytes (%) (Auto) 25 % (24-48) Monocytes (%) (Auto) 8 % (0-9) Eosinophils (%) (Auto) 4 % (0-3) Basophils (%) (Auto) 1 % (0-3) Neutrophils # (Auto) 4.5 x10^3uL (1.8-7.7) Lymphocytes # (Auto) 1.9 x10^3/uL (1.0-4.8) Monocytes # (Auto) 0.6 x10^3/uL (0.0-1.1) Eosinophils # (Auto) 0.3 x10^3/uL (0.0-0.7) Basophils # (Auto) 0.1 x10^3/uL (0.0-0.2) Prothrombin Time 13.0 SEC (11.7-14.0) Prothromb Time International Ratio 1.0 (0.8-1.1) Sodium Level 136 mmol/L (136-145) Potassium Level 4.3 mmol/L (3.5-5.1) Chloride Level 98 mmol/L (98-107) Carbon Dioxide Level 30 mmol/L (21-32) Anion Gap 8 (6-14) Blood Urea Nitrogen 22 mg/dL (8-26) Creatinine 1.4 mg/dL (0.7-1.3) Estimated GFR (Cockcroft-Gault) 54.1 BUN/Creatinine Ratio 16 (6-20) Glucose Level 368 mg/dL (70-99) Glucose (Fingerstick) 397 mg/dL (70-99) 161 mg/dL (70-99) Calcium Level 9.3 mg/dL (8.5-10.1) Magnesium Level 2.2 mg/dL (1.8-2.4) Total Bilirubin 0.4 mg/dL (0.2-1.0) Aspartate Amino Transf (AST/SGOT) 15 U/L (15-37) Alanine Aminotransferase (ALT/SGPT) 23 U/L (16-63) Alkaline Phosphatase 122 U/L (46-116) Creatine Kinase 62 U/L (39-308) Creatine Kinase MB (Mass) 3.3 ng/mL (0.0-3.6) Creatine Kinase MB Relative Index 5.3 % (0-4) Troponin I Quantitative < 0.017 ng/mL (0.000-0.055) [id number]-Type Natriuretic Peptide 1720 pg/mL (0-124) Total Protein 8.4 g/dL (6.4-8.2) Albumin 3.3 g/dL (3.4-5.0) Albumin/Globulin Ratio 0.6 (1.0-1.7) Lipase 225 U/L (73-393) Acetone Level Neg (NEG) Test 09/04/18 17:19 Glucose (Fingerstick) 123 mg/dL (70-99) VTE Prophylaxis Ordered VTE Prophylaxis Devices: No VTE Pharmacological Prophylaxi: Yes Assessment/Plan Assessment/Plan IMPRESSION HYPERTENSIVE URGENCY NONCOMPLIANCE METH ABUSE CHF exacerbation, systolic NYHA III HX CArdiomyopathy with low EF UNCONTROLLED DIABETES PLAN TELE BP CONTROL IV MEDS ENALAPRIL PRN SS INSULIN LYTES, MG RESTART HOME MEDS MARIBEL HERRERA MD Sep 04, 2018 19:40
[2018-09-04] MEDS: GABAPENTIN 100 MG CAPSULE. PO SCH (21:18)
[2018-09-04] MEDS: SIMVASTATIN 20 MG TABLET PO SCH (21:18)
[2018-09-04 22:46] VITALS: BP 119/81
[2018-09-05] VITALS (8 sets, daily range): BP systolic 100–125; BP diastolic 56–77
[2018-09-05 05:14] LABS: BASO # 0.1 x10^3/uL (0.0-0.2); BASO % 1 % (0-3); EOS # 0.4 x10^3/uL (0.0-0.7); EOS % 4 % (0-3); HEMATOCRIT 46.5 % (39.0-53.0); LYMPH # 2.6 x10^3/uL (1.0-4.8); LYMPH % 30 % (24-48); MEAN CORPUSCULAR HEMOGLOBIN 31 pg (25-35); MEAN CORPUSCULAR HGB CONC 34 g/dL (31-37); MEAN CORPUSCULAR VOLUME 90 fL (79-100); MONO # 0.6 x10^3/uL (0.0-1.1); MONO % 6 % (0-9); NEUT # 5.1 x10^3uL (1.8-7.7); NEUT % 59 % (31-73); PLATELET COUNT 260 x10^3/uL (140-400); RED BLOOD COUNT 5.16 x10^6/uL (4.30-5.70); RED CELL DISTRIBUTION WIDTH 13.6 % (11.5-14.5); WHITE BLOOD COUNT 8.7 x10^3/uL (4.0-11.0)
[2018-09-05 05:17] LABS: CALCIUM 8.6 mg/dL (8.5-10.1); CREATININE 1.2 mg/dL (0.7-1.3); GFR 64.6; POTASSIUM 3.9 mmol/L (3.5-5.1)
[2018-09-05] MEDS: ENALAPRILAT 1.25 MG/ML VIAL. IVP SCH ×2 (06:35)
[2018-09-05] MEDS ORDERED: INSULIN LISPRO 300 UNITS/3 ML INSULN.PEN. SQ SCH (08:00)
[2018-09-05] MEDS: FUROSEMIDE 40 MG TABLET. PO SCH (08:01)
[2018-09-05] MEDS: LISINOPRIL 5 MG TABLET. PO SCH ×2 (09:00→13:36)
[2018-09-05] MEDS ORDERED: glyBURIDE 5 MG TABLET PO SCH (09:00)
[2018-09-05] MEDS ORDERED: FUROSEMIDE 40 MG/4 ML VIAL. IVP SCH (09:00)
[2018-09-05] MEDS: SPIRONOLACTONE 25 MG TABLET PO SCH ×2 (09:00→13:35)
[2018-09-05] MEDS ORDERED: INSULIN GLARGINE 300 UNITS/3 ML INSULN.PEN. SQ SCH (09:00)
[2018-09-05] MEDS: METOPROLOL SUCC 24HR ER 25 MG TAB.ER.24H. PO SCH ×2 (09:00→17:02)
[2018-09-05] MEDS ORDERED: DEXTROSE 50% 25 GM / 50ML DISP.SYRIN. IV PRN (09:00)
[2018-09-05] MEDS: GABAPENTIN 100 MG CAPSULE. PO SCH ×3 (09:12→21:07)
[2018-09-05] MEDS: ASPIRIN CHEWABLE 81 MG TABLET. PO SCH (09:13)
--- NOTE | 2018-09-05 09:33 | CARD ---
MR#: [id number] Date of Study: 09/05/2018 Ordering Physician: MARIBEL HERRERA, Referring Physician: MARIBEL HERRERA Tech: Lisa Faustin RDCS APPROVED REPORT EXAM: Two-dimensional and M-mode echocardiogram with Doppler and color Doppler. Other Information Quality : Fair INDICATION Congestive Heart Failure Surgery/Intervention CABG: Date: 2013 2D DIMENSIONS Left Atrium(2D)3.4 (1.6-4.0cm)IVSd0.8 (0.7-1.1cm) Aortic Root(2D)3.2 (2.0-3.7cm)LVDd5.8 (3.9-5.9cm) LVOT Diameter2.0 (1.8-2.4cm)PWd0.8 (0.7-1.1cm) LVDs5.5 (2.5-4.0cm)FS (%) 4.9 % SV17.8 ml Aortic Valve AoV Peak Monico.103.0cm/sAoV VTI17.2cm AO Peak GR.4.2mmHgLVOT Peak Monico.58.3cm/s AO Mean GR.3mmHgAVA (VMAX)1.82cm2 AI P 1/2 [id number] Mitral Valve MV E Zjwgzuvy50.2cm/sMV DECEL [id number] MV A Iursguvn959.4cm/sE/A Ratio0.8 Tricuspid Valve TR P. Flxuduwp548ex/sRAP VPOQSXKR1zaNw TR Peak Gr.42jbMrMKEK30qrFy Pulmonary Vein S1 Jrgvkdhv41.7cm/sD2 Pcxdbuvu71.9cm/s LEFT VENTRICLE The Left Ventricle is moderate to severely dilated. There is normal left ventricular wall thickness. Left ventricle ejection fraction is severely impaired. The Ejection Fraction is 15-20%. There is yovana re global hypokinesis of the left ventricle. Transmitral Doppler flow pattern is Grade I-abnormal rel axation pattern. No left ventricle thrombus noted on this study. RIGHT VENTRICLE The right ventricle is normal size. The right ventricular systolic function is normal. ATRIA The left atrium size is normal. The right atrium size is normal. The interatrial septum is intact wit h no evidence for an atrial septal defect or patent foramen ovale as noted on 2-D or Doppler imaging. AORTIC VALVE The aortic valve is normal in structure and function. Doppler and Color Flow revealed trace aortic re gurgitation. There is no significant aortic valvular stenosis. MITRAL VALVE The mitral valve is normal in structure and function. There is no evidence of mitral valve prolapse. There is no mitral valve stenosis. Doppler and Color Flow revealed no mitral valve regurgitation note d. TRICUSPID VALVE The tricuspid valve is normal in structure and function. Doppler and Color Flow revealed trace tricus pid regurgitation. The PA pressure was estimated at 28 mmHg. There is no tricuspid valve stenosis. PULMONIC VALVE The pulmonic valve is not well visualized. Doppler and Color Flow revealed no pulmonic valvular regur gitation. There is no pulmonic valvular stenosis. GREAT VESSELS The aortic root is normal in size. The ascending aorta is normal in size. The IVC is normal in size a nd collapses >50% with inspiration. PERICARDIAL EFFUSION There is no evidence of significant pericardial effusion. Critical Notification Critical Value: No <Conclusion> The Left Ventricle is moderate to severely dilated. Left ventricle ejection fraction is severely impaired. The Ejection Fraction is 15-20%. There is severe global hypokinesis of the left ventricle. There is no significant aortic valvular stenosis. Doppler and Color Flow revealed trace aortic regurgitation. Doppler and Color Flow revealed no mitral valve regurgitation noted. Doppler and Color Flow revealed trace tricuspid regurgitation. The PA pressure was estimated at 28 mmHg. Signed by : Ramon Jean Baptiste MD Electronically Approved : 09/05/2018 09:32:40
--- NOTE | 2018-09-05 10:40 | PDOC ---
PROGRESS NOTES Chief Complaint Chief Complaint HYPERTENSIVE URGENCY NONCOMPLIANCE - off meds x 3 months METH ABUSE CHF exacerbation, systolic NYHA III HX CArdiomyopathy with low EF 15-20% - echo 09/05/18 UNCONTROLLED DIABETES with last hgba1c 8 in 2015 History of Present Illness History of Present Illness Patient admits to off medications for 3 months because he was evicted in his house He complains of neuropathy in both feet-on gabapentin 100mg 3 times a day Blood pressure is much better-home meds colleague has resumed Colleague has also ordered an echo and showed an EF of 15-20% Blood sugars still uncontrolled, hemoglobin A1c is 8 in 2016 Unknown hemoglobin A1c currently Called by RN this morning for a blood sugar 386 breakfast Plan: Continue Lantus long-acting during the morning, his home regimen I do not see a contraindication in starting glyburide twice a day - so I did that I will see if we need to add metformin, I was not able to elicit kidney issues or drinking history-metformin might be a good addition to his insulin regimen Continue gabapentin 100mg 3 times a day I did consult cardiology because of that low EF 15-20% on echocardiogram 09/05/18 ABGs education and counseling done today, especially about prognosis of uncontrolled diabetes Significant time in the room 35 minutes, greater than 60% education about uncontrolled diabetes and uncontrolled hypertension Vitals Vitals Vital Signs Date Time Temp Pulse Resp B/P (MAP) Pulse Ox O2 Delivery O2 Flow Rate FiO2 09/05/18 07:25 98.1 77 16 105/72 (83) 98 Room Air 98.1 Physical Exam General: Alert, Oriented X3, Cooperative, No acute distress, moderate distress Heart: Regular rate, Normal S1, Normal S2, No murmurs Lungs: Clear, Crackles Abdomen: Soft, No tenderness, No hepatosplenomegaly Extremities: No clubbing, No cyanosis Skin: No rashes, No breakdown, No significant lesion Labs LABS Laboratory Tests Test 09/04/18 12:50 09/04/18 12:59 09/04/18 13:00 09/04/18 16:27 Urine Collection Type Unknown Urine Color Yellow Urine Clarity Clear Urine pH 5.5 Urine Specific [place] >=1.030 Urine Protein 30 mg/dL (NEG-TRACE) Urine Glucose (UA) >=1000 mg/dL (NEG) Urine Ketones (Stick) Negative mg/dL (NEG) Urine Blood Small (NEG) Urine Nitrite Negative (NEG) Urine Bilirubin Negative (NEG) Urine Urobilinogen Dipstick 0.2 mg/dL (0.2 mg/dL) Urine Leukocyte Esterase Negative (NEG) Urine RBC 3-5 /HPF (0-2) Urine WBC 1-4 /HPF (0-4) Urine Squamous Epithelial Cells Occ /LPF Urine Bacteria Few /HPF (0-FEW) Urine Mucus Slight /LPF Urine Opiates Screen Neg (NEG) Urine Methadone Screen Neg (NEG) Urine Barbiturates Neg (NEG) Urine Phencyclidine Screen Neg (NEG) Urine Amphetamine/Methamphetamine Pos (NEG) Urine Benzodiazepines Screen Neg (NEG) Urine Cocaine Screen Neg (NEG) Urine Cannabinoids Screen Neg (NEG) Urine Ethyl Alcohol Neg (NEG) O2 Saturation 98 % (92-99) Arterial Blood pH 7.42 (7.35-7.45) Arterial Blood pCO2 at Patient Temp 40 mmHg (35-46) Arterial Blood pO2 at Patient Temp 96 mmHg (75-108) Arterial Blood HCO3 25 mmol/L (21-28) Arterial Blood Base Excess 1 mmol/L (-3-3) Oxyhemoglobin 96.2 % Methemoglobin 0.0 % (0.0-1.9) Carbon Monoxide, Quantitative 1.3 % (0.0-1.9) FiO2 21 White Blood Count 7.4 x10^3/uL (4.0-11.0) Red Blood Count 5.48 x10^6/uL (4.30-5.70) Hemoglobin 17.0 g/dL (13.0-17.5) Hematocrit 48.2 % (39.0-53.0) Mean Corpuscular Volume 88 fL (79-100) Mean Corpuscular Hemoglobin 31 pg (25-35) Mean Corpuscular Hemoglobin Concent 35 g/dL (31-37) Red Cell Distribution Width 13.4 % (11.5-14.5) Platelet Count 280 x10^3/uL (140-400) Neutrophils (%) (Auto) 61 % (31-73) Lymphocytes (%) (Auto) 25 % (24-48) Monocytes (%) (Auto) 8 % (0-9) Eosinophils (%) (Auto) 4 % (0-3) Basophils (%) (Auto) 1 % (0-3) Neutrophils # (Auto) 4.5 x10^3uL (1.8-7.7) Lymphocytes # (Auto) 1.9 x10^3/uL (1.0-4.8) Monocytes # (Auto) 0.6 x10^3/uL (0.0-1.1) Eosinophils # (Auto) 0.3 x10^3/uL (0.0-0.7) Basophils # (Auto) 0.1 x10^3/uL (0.0-0.2) Prothrombin Time 13.0 SEC (11.7-14.0) Prothromb Time International Ratio 1.0 (0.8-1.1) Sodium Level 136 mmol/L (136-145) Potassium Level 4.3 mmol/L (3.5-5.1) Chloride Level 98 mmol/L (98-107) Carbon Dioxide Level 30 mmol/L (21-32) Anion Gap 8 (6-14) Blood Urea Nitrogen 22 mg/dL (8-26) Creatinine 1.4 mg/dL (0.7-1.3) Estimated GFR (Cockcroft-Gault) 54.1 BUN/Creatinine Ratio 16 (6-20) Glucose Level 368 mg/dL (70-99) Glucose (Fingerstick) 397 mg/dL (70-99) 161 mg/dL (70-99) Calcium Level 9.3 mg/dL (8.5-10.1) Magnesium Level 2.2 mg/dL (1.8-2.4) Total Bilirubin 0.4 mg/dL (0.2-1.0) Aspartate Amino Transf (AST/SGOT) 15 U/L (15-37) Alanine Aminotransferase (ALT/SGPT) 23 U/L (16-63) Alkaline Phosphatase 122 U/L (46-116) Creatine Kinase 62 U/L (39-308) Creatine Kinase MB (Mass) 3.3 ng/mL (0.0-3.6) Creatine Kinase MB Relative Index 5.3 % (0-4) Troponin I Quantitative < 0.017 ng/mL (0.000-0.055) WF-Tyn-U-Type Natriuretic Peptide 1720 pg/mL (0-124) Total Protein 8.4 g/dL (6.4-8.2) Albumin 3.3 g/dL (3.4-5.0) Albumin/Globulin Ratio 0.6 (1.0-1.7) Lipase 225 U/L (73-393) Acetone Level Neg (NEG) Test 09/04/18 17:19 09/04/18 20:44 09/05/18 04:25 09/05/18 07:29 Glucose (Fingerstick) 123 mg/dL (70-99) 344 mg/dL (70-99) 380 mg/dL (70-99) White Blood Count 8.7 x10^3/uL (4.0-11.0) Red Blood Count 5.16 x10^6/uL (4.30-5.70) Hemoglobin 16.0 g/dL (13.0-17.5) Hematocrit 46.5 % (39.0-53.0) Mean Corpuscular Volume 90 fL (79-100) Mean Corpuscular Hemoglobin 31 pg (25-35) Mean Corpuscular Hemoglobin Concent 34 g/dL (31-37) Red Cell Distribution Width 13.6 % (11.5-14.5) Platelet Count 260 x10^3/uL (140-400) Neutrophils (%) (Auto) 59 % (31-73) Lymphocytes (%) (Auto) 30 % (24-48) Monocytes (%) (Auto) 6 % (0-9) Eosinophils (%) (Auto) 4 % (0-3) Basophils (%) (Auto) 1 % (0-3) Neutrophils # (Auto) 5.1 x10^3uL (1.8-7.7) Lymphocytes # (Auto) 2.6 x10^3/uL (1.0-4.8) Monocytes # (Auto) 0.6 x10^3/uL (0.0-1.1) Eosinophils # (Auto) 0.4 x10^3/uL (0.0-0.7) Basophils # (Auto) 0.1 x10^3/uL (0.0-0.2) Sodium Level 134 mmol/L (136-145) Potassium Level 3.9 mmol/L (3.5-5.1) Chloride Level 99 mmol/L (98-107) Carbon Dioxide Level 27 mmol/L (21-32) Anion Gap 8 (6-14) Blood Urea Nitrogen 17 mg/dL (8-26) Creatinine 1.2 mg/dL (0.7-1.3) Estimated GFR (Cockcroft-Gault) 64.6 Glucose Level 420 mg/dL (70-99) Calcium Level 8.6 mg/dL (8.5-10.1) Review of Systems Review of Systems Neuropathy both feet, otherwise rest of ROS 14 point negative Assessment and Plan Assessmemt and Plan Problems Medical Problems: (1) Diabetic neuropathy Status: Acute (2) HTN (hypertension) Status: Acute (3) Hyperglycemia Status: Acute Comment Review of Relevant I have reviewed the following items jackie (where applicable) has been applied. Labs Laboratory Tests Test 09/04/18 12:50 09/04/18 12:59 09/04/18 13:00 09/04/18 16:27 Urine Collection Type Unknown Urine Color Yellow Urine Clarity Clear Urine pH 5.5 Urine Specific [place] >=1.030 Urine Protein 30 mg/dL (NEG-TRACE) Urine Glucose (UA) >=1000 mg/dL (NEG) Urine Ketones (Stick) Negative mg/dL (NEG) Urine Blood Small (NEG) Urine Nitrite Negative (NEG) Urine Bilirubin Negative (NEG) Urine Urobilinogen Dipstick 0.2 mg/dL (0.2 mg/dL) Urine Leukocyte Esterase Negative (NEG) Urine RBC 3-5 /HPF (0-2) Urine WBC 1-4 /HPF (0-4) Urine Squamous Epithelial Cells Occ /LPF Urine Bacteria Few /HPF (0-FEW) Urine Mucus Slight /LPF Urine Opiates Screen Neg (NEG) Urine Methadone Screen Neg (NEG) Urine Barbiturates Neg (NEG) Urine Phencyclidine Screen Neg (NEG) Urine Amphetamine/Methamphetamine Pos (NEG) Urine Benzodiazepines Screen Neg (NEG) Urine Cocaine Screen Neg (NEG) Urine Cannabinoids Screen Neg (NEG) Urine Ethyl Alcohol Neg (NEG) O2 Saturation 98 % (92-99) Arterial Blood pH 7.42 (7.35-7.45) Arterial Blood pCO2 at Patient Temp 40 mmHg (35-46) Arterial Blood pO2 at Patient Temp 96 mmHg (75-108) Arterial Blood HCO3 25 mmol/L (21-28) Arterial Blood Base Excess 1 mmol/L (-3-3) Oxyhemoglobin 96.2 % Methemoglobin 0.0 % (0.0-1.9) Carbon Monoxide, Quantitative 1.3 % (0.0-1.9) FiO2 21 White Blood Count 7.4 x10^3/uL (4.0-11.0) Red Blood Count 5.48 x10^6/uL (4.30-5.70) Hemoglobin 17.0 g/dL (13.0-17.5) Hematocrit 48.2 % (39.0-53.0) Mean Corpuscular Volume 88 fL (79-100) Mean Corpuscular Hemoglobin 31 pg (25-35) Mean Corpuscular Hemoglobin Concent 35 g/dL (31-37) Red Cell Distribution Width 13.4 % (11.5-14.5) Platelet Count 280 x10^3/uL (140-400) Neutrophils (%) (Auto) 61 % (31-73) Lymphocytes (%) (Auto) 25 % (24-48) Monocytes (%) (Auto) 8 % (0-9) Eosinophils (%) (Auto) 4 % (0-3) Basophils (%) (Auto) 1 % (0-3) Neutrophils # (Auto) 4.5 x10^3uL (1.8-7.7) Lymphocytes # (Auto) 1.9 x10^3/uL (1.0-4.8) Monocytes # (Auto) 0.6 x10^3/uL (0.0-1.1) Eosinophils # (Auto) 0.3 x10^3/uL (0.0-0.7) Basophils # (Auto) 0.1 x10^3/uL (0.0-0.2) Prothrombin Time 13.0 SEC (11.7-14.0) Prothromb Time International Ratio 1.0 (0.8-1.1) Sodium Level 136 mmol/L (136-145) Potassium Level 4.3 mmol/L (3.5-5.1) Chloride Level 98 mmol/L (98-107) Carbon Dioxide Level 30 mmol/L (21-32) Anion Gap 8 (6-14) Blood Urea Nitrogen 22 mg/dL (8-26) Creatinine 1.4 mg/dL (0.7-1.3) Estimated GFR (Cockcroft-Gault) 54.1 BUN/Creatinine Ratio 16 (6-20) Glucose Level 368 mg/dL (70-99) Glucose (Fingerstick) 397 mg/dL (70-99) 161 mg/dL (70-99) Calcium Level 9.3 mg/dL (8.5-10.1) Magnesium Level 2.2 mg/dL (1.8-2.4) Total Bilirubin 0.4 mg/dL (0.2-1.0) Aspartate Amino Transf (AST/SGOT) 15 U/L (15-37) Alanine Aminotransferase (ALT/SGPT) 23 U/L (16-63) Alkaline Phosphatase 122 U/L (46-116) Creatine Kinase 62 U/L (39-308) Creatine Kinase MB (Mass) 3.3 ng/mL (0.0-3.6) Creatine Kinase MB Relative Index 5.3 % (0-4) Troponin I Quantitative < 0.017 ng/mL (0.000-0.055) IE-Joo-H-Type Natriuretic Peptide 1720 pg/mL (0-124) Total Protein 8.4 g/dL (6.4-8.2) Albumin 3.3 g/dL (3.4-5.0) Albumin/Globulin Ratio 0.6 (1.0-1.7) Lipase 225 U/L (73-393) Acetone Level Neg (NEG) Test 09/04/18 17:19 09/04/18 20:44 09/05/18 04:25 09/05/18 07:29 Glucose (Fingerstick) 123 mg/dL (70-99) 344 mg/dL (70-99) 380 mg/dL (70-99) White Blood Count 8.7 x10^3/uL (4.0-11.0) Red Blood Count 5.16 x10^6/uL (4.30-5.70) Hemoglobin 16.0 g/dL (13.0-17.5) Hematocrit 46.5 % (39.0-53.0) Mean Corpuscular Volume 90 fL (79-100) Mean Corpuscular Hemoglobin 31 pg (25-35) Mean Corpuscular Hemoglobin Concent 34 g/dL (31-37) Red Cell Distribution Width 13.6 % (11.5-14.5) Platelet Count 260 x10^3/uL (140-400) Neutrophils (%) (Auto) 59 % (31-73) Lymphocytes (%) (Auto) 30 % (24-48) Monocytes (%) (Auto) 6 % (0-9) Eosinophils (%) (Auto) 4 % (0-3) Basophils (%) (Auto) 1 % (0-3) Neutrophils # (Auto) 5.1 x10^3uL (1.8-7.7) Lymphocytes # (Auto) 2.6 x10^3/uL (1.0-4.8) Monocytes # (Auto) 0.6 x10^3/uL (0.0-1.1) Eosinophils # (Auto) 0.4 x10^3/uL (0.0-0.7) Basophils # (Auto) 0.1 x10^3/uL (0.0-0.2) Sodium Level 134 mmol/L (136-145) Potassium Level 3.9 mmol/L (3.5-5.1) Chloride Level 99 mmol/L (98-107) Carbon Dioxide Level 27 mmol/L (21-32) Anion Gap 8 (6-14) Blood Urea Nitrogen 17 mg/dL (8-26) Creatinine 1.2 mg/dL (0.7-1.3) Estimated GFR (Cockcroft-Gault) 64.6 Glucose Level 420 mg/dL (70-99) Calcium Level 8.6 mg/dL (8.5-10.1) Laboratory Tests Test 09/04/18 12:50 09/04/18 12:59 09/04/18 13:00 09/04/18 16:27 Urine Collection Type Unknown Urine Color Yellow Urine Clarity Clear Urine pH 5.5 Urine Specific [place] >=1.030 Urine Protein 30 mg/dL (NEG-TRACE) Urine Glucose (UA) >=1000 mg/dL (NEG) Urine Ketones (Stick) Negative mg/dL (NEG) Urine Blood Small (NEG) Urine Nitrite Negative (NEG) Urine Bilirubin Negative (NEG) Urine Urobilinogen Dipstick 0.2 mg/dL (0.2 mg/dL) Urine Leukocyte Esterase Negative (NEG) Urine RBC 3-5 /HPF (0-2) Urine WBC 1-4 /HPF (0-4) Urine Squamous Epithelial Cells Occ /LPF Urine Bacteria Few /HPF (0-FEW) Urine Mucus Slight /LPF Urine Opiates Screen Neg (NEG) Urine Methadone Screen Neg (NEG) Urine Barbiturates Neg (NEG) Urine Phencyclidine Screen Neg (NEG) Urine Amphetamine/Methamphetamine Pos (NEG) Urine Benzodiazepines Screen Neg (NEG) Urine Cocaine Screen Neg (NEG) Urine Cannabinoids Screen Neg (NEG) Urine Ethyl Alcohol Neg (NEG) O2 Saturation 98 % (92-99) Arterial Blood pH 7.42 (7.35-7.45) Arterial Blood pCO2 at Patient Temp 40 mmHg (35-46) Arterial Blood pO2 at Patient Temp 96 mmHg (75-108) Arterial Blood HCO3 25 mmol/L (21-28) Arterial Blood Base Excess 1 mmol/L (-3-3) Oxyhemoglobin 96.2 % Methemoglobin 0.0 % (0.0-1.9) Carbon Monoxide, Quantitative 1.3 % (0.0-1.9) FiO2 21 White Blood Count 7.4 x10^3/uL (4.0-11.0) Red Blood Count 5.48 x10^6/uL (4.30-5.70) Hemoglobin 17.0 g/dL (13.0-17.5) Hematocrit 48.2 % (39.0-53.0) Mean Corpuscular Volume 88 fL (79-100) Mean Corpuscular Hemoglobin 31 pg (25-35) Mean Corpuscular Hemoglobin Concent 35 g/dL (31-37) Red Cell Distribution Width 13.4 % (11.5-14.5) Platelet Count 280 x10^3/uL (140-400) Neutrophils (%) (Auto) 61 % (31-73) Lymphocytes (%) (Auto) 25 % (24-48) Monocytes (%) (Auto) 8 % (0-9) Eosinophils (%) (Auto) 4 % (0-3) Basophils (%) (Auto) 1 % (0-3) Neutrophils # (Auto) 4.5 x10^3uL (1.8-7.7) Lymphocytes # (Auto) 1.9 x10^3/uL (1.0-4.8) Monocytes # (Auto) 0.6 x10^3/uL (0.0-1.1) Eosinophils # (Auto) 0.3 x10^3/uL (0.0-0.7) Basophils # (Auto) 0.1 x10^3/uL (0.0-0.2) Prothrombin Time 13.0 SEC (11.7-14.0) Prothromb Time International Ratio 1.0 (0.8-1.1) Sodium Level 136 mmol/L (136-145) Potassium Level 4.3 mmol/L (3.5-5.1) Chloride Level 98 mmol/L (98-107) Carbon Dioxide Level 30 mmol/L (21-32) Anion Gap 8 (6-14) Blood Urea Nitrogen 22 mg/dL (8-26) Creatinine 1.4 mg/dL (0.7-1.3) Estimated GFR (Cockcroft-Gault) 54.1 BUN/Creatinine Ratio 16 (6-20) Glucose Level 368 mg/dL (70-99) Glucose (Fingerstick) 397 mg/dL (70-99) 161 mg/dL (70-99) Calcium Level 9.3 mg/dL (8.5-10.1) Magnesium Level 2.2 mg/dL (1.8-2.4) Total Bilirubin 0.4 mg/dL (0.2-1.0) Aspartate Amino Transf (AST/SGOT) 15 U/L (15-37) Alanine Aminotransferase (ALT/SGPT) 23 U/L (16-63) Alkaline Phosphatase 122 U/L (46-116) Creatine Kinase 62 U/L (39-308) Creatine Kinase MB (Mass) 3.3 ng/mL (0.0-3.6) Creatine Kinase MB Relative Index 5.3 % (0-4) Troponin I Quantitative < 0.017 ng/mL (0.000-0.055) WC-Ypi-A-Type Natriuretic Peptide 1720 pg/mL (0-124) Total Protein 8.4 g/dL (6.4-8.2) Albumin 3.3 g/dL (3.4-5.0) Albumin/Globulin Ratio 0.6 (1.0-1.7) Lipase 225 U/L (73-393) Acetone Level Neg (NEG) Test 09/04/18 17:19 09/04/18 20:44 09/05/18 04:25 09/05/18 07:29 Glucose (Fingerstick) 123 mg/dL (70-99) 344 mg/dL (70-99) 380 mg/dL (70-99) White Blood Count 8.7 x10^3/uL (4.0-11.0) Red Blood Count 5.16 x10^6/uL (4.30-5.70) Hemoglobin 16.0 g/dL (13.0-17.5) Hematocrit 46.5 % (39.0-53.0) Mean Corpuscular Volume 90 fL (79-100) Mean Corpuscular Hemoglobin 31 pg (25-35) Mean Corpuscular Hemoglobin Concent 34 g/dL (31-37) Red Cell Distribution Width 13.6 % (11.5-14.5) Platelet Count 260 x10^3/uL (140-400) Neutrophils (%) (Auto) 59 % (31-73) Lymphocytes (%) (Auto) 30 % (24-48) Monocytes (%) (Auto) 6 % (0-9) Eosinophils (%) (Auto) 4 % (0-3) Basophils (%) (Auto) 1 % (0-3) Neutrophils # (Auto) 5.1 x10^3uL (1.8-7.7) Lymphocytes # (Auto) 2.6 x10^3/uL (1.0-4.8) Monocytes # (Auto) 0.6 x10^3/uL (0.0-1.1) Eosinophils # (Auto) 0.4 x10^3/uL (0.0-0.7) Basophils # (Auto) 0.1 x10^3/uL (0.0-0.2) Sodium Level 134 mmol/L (136-145) Potassium Level 3.9 mmol/L (3.5-5.1) Chloride Level 99 mmol/L (98-107) Carbon Dioxide Level 27 mmol/L (21-32) Anion Gap 8 (6-14) Blood Urea Nitrogen 17 mg/dL (8-26) Creatinine 1.2 mg/dL (0.7-1.3) Estimated GFR (Cockcroft-Gault) 64.6 Glucose Level 420 mg/dL (70-99) Calcium Level 8.6 mg/dL (8.5-10.1) Medications Current Medications Sodium Chloride 1,000 ml @ 1,000 mls/hr Q1H IV Last administered on 09/04/18at 13:18; Start 09/04/18 at 12:59; Stop 09/04/18 at 13:58; Status DC Insulin Human Regular (HumuLIN R VIAL) 6 unit 1X ONCE IV Last administered on 09/04/18at 15:29; Start 09/04/18 at 14:30; Stop 09/04/18 at 14:32; Status DC Ondansetron HCl (Zofran) 4 mg PRN Q8HRS PRN IV NAUSEA/VOMITING; Start 09/04/18 at 15:45; Stop 09/05/18 at 15:44 Insulin Human Lispro (HumaLOG) 0-5 UNITS TIDWMEALS SQ ; Start 09/05/18 at 08:00 ; Stop 09/05/18 at 08:51; Status DC Dextrose (Dextrose 50%-Water Syringe) 12.5 gm PRN Q15MIN PRN IV SEE COMMENTS; Start 09/04/18 at 18:30 Aspirin (Children'S Aspirin) 81 mg DAILY PO Last administered on 09/05/18at 09: 13; Start 09/05/18 at 09:00 Furosemide (Lasix) 40 mg DAILY PO ; Start 09/05/18 at 09:00 Gabapentin (Neurontin) 100 mg TID PO Last administered on 09/05/18at 09:12; Start 09/04/18 at 21:00 Metoprolol Succinate (Toprol Xl) 25 mg DAILY PO ; Start 09/05/18 at 09:00 Insulin Glargine (Lantus) 15 units DAILY SQ Last administered on 09/05/18at 09: 19; Start 09/05/18 at 09:00 Lisinopril (Prinivil) 5 mg DAILY PO ; Start 09/05/18 at 09:00 Simvastatin (Zocor) 20 mg HS PO Last administered on 09/04/18at 21:18; Start at 21:00 Spironolactone (Aldactone) 25 mg DAILY PO ; Start 09/05/18 at 09:00 Enalaprilat (Vasotec Inj) 1.25 mg Q6HRS IVP Last administered on 09/05/18at 06: 35; Start 09/05/18 at 00:00 Furosemide (Lasix) 40 mg DAILY IVP ; Start 09/05/18 at 09:00; Stop 09/05/18 at 09:00; Status DC Insulin Human Lispro (HumaLOG) 0-9 UNITS TIDWMEALS SQ ; Start 09/05/18 at 12:00 Dextrose (Dextrose 50%-Water Syringe) 12.5 gm PRN Q15MIN PRN IV SEE COMMENTS; Start 09/05/18 at 09:00 Glyburide (Diabeta) 5 mg BIDWMEALS PO Last administered on 09/05/18at 09:12; Start 09/05/18 at 09:00 Active Scripts Active Aldactone (Spironolactone) 25 Mg Tablet 1 Tab PO DAILY Gabapentin 100 Mg Capsule 100 Mg PO TID 60 Days Lisinopril 5 Mg Tablet 1 Tab PO DAILY Lasix (Furosemide) 40 Mg Tablet 1 Tab PO DAILY Metoprolol Succinate ( Xl ) (Metoprolol Succinate) 25 Mg Tab.er.24h 1 Tab PO DAILY Aspirin 81 Mg Tab.chew 1 Tab PO DAILY Reported Yury Lancasterostar (Insulin Glargine,Hum.rec.anlog) 300 Unit/1 Ml Insuln.pen 15 Unit SQ DAILY Simvastatin 40 Mg Tablet 1 Tab PO QHS Vitals/I & O Vital Sign - Last 24 Hours 09/04/18 09/04/18 09/04/18 09/04/18 13:00 13:58 14:03 15:30 Temp 97.9 97.9 Pulse 105 86 87 Resp 28 26 20 B/P (MAP) 145/96 (112) 147/80 (102) 145/88 (107) Pulse Ox 98 21 98 98 O2 Delivery Room Air Room Air Room Air Room Air 09/04/18 09/04/18 09/04/18 09/04/18 16:30 17:00 17:30 19:00 Temp 98.4 98.5 98.4 98.5 Pulse 88 89 61 Resp 18 18 B/P (MAP) 133/68 (89) 113/80 (91) 124/75 (91) Pulse Ox 98 98 99 O2 Delivery Room Air Room Air Room Air 09/04/18 09/05/18 09/05/18 09/05/18 22:46 03:00 06:35 07:25 Temp 98.4 98.5 98.1 98.4 98.5 98.1 Pulse 82 84 78 77 Resp 18 18 16 B/P (MAP) 119/81 (94) 119/77 (91) 122/83 105/72 (83) Pulse Ox 98 95 98 O2 Delivery Room Air Room Air Room Air Intake and Output 09/04/18 09/04/18 09/05/18 15:00 23:00 07:00 Intake Total 1000 ml 365 ml Balance 1000 ml 365 ml PAIGE LUNA MD Sep 05, 2018 10:40
--- NOTE | 2018-09-05 12:14 | PDOC2 ---
CARDIAC CONSULT DATE OF CONSULT Date of Consult DATE: 09/05/18 TIME: 11:42 REASON FOR CONSULT Reason for Consult: Severe cardiomyopathy REFERRING PHYSICIAN Referring Physician: Ying SOURCE Source: Chart review, Patient HISTORY OF PRESENT ILLNESS HISTORY OF PRESENT ILLNESS This is a 47 yo male admitted for multiple complaints with noted uncontrolled DM. Unfortunately he has been out of his regular medications in the last 3 months. He reported that his medications was accidentally thrown away. Verbalized limited means financially for follow ups and medications. He does continue to smoke but no recreational drugs. Denies any chest pain, SOA or palpitations. He has not followed up for a long time with cardiology. He had CABG in 2013 and could not remember at that time when he had seen any sneller hand as an outpt. PAST MEDICAL HISTORY Cardiovascular: CAD, CHF, HTN, Hyperlipidemia, Other (ICM) Pulmonary: COPD GI: Peptic Ulcer disease Psych: Anxiety Renal/: Chronic renal insuff PAST SURGICAL HISTORY Past Surgical History: CABG (x3 in 2014 at [facility]) FAMILY HISTORY Family History: Adopted SOCIAL HISTORY Smoke: <1 pack per day ALCOHOL: none Drugs: None Lives: with Family CURRENT MEDICATIONS CURRENT MEDICATIONS Current Medications Medications (Trade) Dose Ordered Sig/Kailyn Route PRN Reason Start Time Stop Time Status Last Admin Dose Admin Sodium Chloride 1,000 ml @ 1,000 mls/hr Q1H IV 09/04/18 12:59 09/04/18 13:58 DC 09/04/18 13:18 Insulin Human Regular (HumuLIN R VIAL) 6 unit 1X ONCE IV 09/04/18 14:30 09/04/18 14:32 DC 09/04/18 15:29 Aspirin (Children'S Aspirin) 81 mg DAILY PO 09/05/18 09:00 09/05/18 09:13 Gabapentin (Neurontin) 100 mg TID PO 09/04/18 21:00 09/05/18 09:12 Insulin Glargine (Lantus) 15 units DAILY SQ 09/05/18 09:00 09/05/18 09:19 Simvastatin (Zocor) 20 mg HS PO 09/04/18 21:00 09/04/18 21:18 Enalaprilat (Vasotec Inj) 1.25 mg Q6HRS IVP 09/05/18 00:00 09/05/18 06:35 Glyburide (Diabeta) 5 mg BIDWMEALS PO 09/05/18 09:00 09/05/18 09:12 ALLERGIES ALLERGIES: Coded Allergies: No Known Drug Allergies (Unverified , 10/16/16) ROS Review of System 14 point ROS evaluated with pertinent positives noted per HPI PHYSICAL EXAM General: Alert, Oriented X3, Cooperative, No acute distress HEENT: Mucous membr. moist/pink Lungs: Clear to auscultation, Normal air movement Heart: Regular rate (SR), Normal S1, Normal S2, Other (2/6 systolic murmur to LLS border) Abdomen: Soft, No tenderness Extremities: No cyanosis, Other (trace edema) Skin: No breakdown, No significant lesion Neuro: Normal speech, Sensation intact Psych/Mental Status: Mental status NL, Mood NL MUSCULOSKELETAL: Osteoarthritic changes both hands VITALS VITALS Vital Signs Date Time Temp Pulse Resp B/P (MAP) Pulse Ox O2 Delivery O2 Flow Rate FiO2 09/05/18 10:48 97.7 60 17 110/77 (88) 99 Room Air 97.7 LABS Lab: Laboratory Tests Test 09/04/18 12:50 09/04/18 12:59 09/04/18 13:00 09/04/18 16:27 Urine Collection Type Unknown Urine Color Yellow Urine Clarity Clear Urine pH 5.5 Urine Specific [place] >=1.030 Urine Protein 30 mg/dL (NEG-TRACE) Urine Glucose (UA) >=1000 mg/dL (NEG) Urine Ketones (Stick) Negative mg/dL (NEG) Urine Blood Small (NEG) Urine Nitrite Negative (NEG) Urine Bilirubin Negative (NEG) Urine Urobilinogen Dipstick 0.2 mg/dL (0.2 mg/dL) Urine Leukocyte Esterase Negative (NEG) Urine RBC 3-5 /HPF (0-2) Urine WBC 1-4 /HPF (0-4) Urine Squamous Epithelial Cells Occ /LPF Urine Bacteria Few /HPF (0-FEW) Urine Mucus Slight /LPF Urine Opiates Screen Neg (NEG) Urine Methadone Screen Neg (NEG) Urine Barbiturates Neg (NEG) Urine Phencyclidine Screen Neg (NEG) Urine Amphetamine/Methamphetamine Pos (NEG) Urine Benzodiazepines Screen Neg (NEG) Urine Cocaine Screen Neg (NEG) Urine Cannabinoids Screen Neg (NEG) Urine Ethyl Alcohol Neg (NEG) O2 Saturation 98 % (92-99) Arterial Blood pH 7.42 (7.35-7.45) Arterial Blood pCO2 at Patient Temp 40 mmHg (35-46) Arterial Blood pO2 at Patient Temp 96 mmHg (75-108) Arterial Blood HCO3 25 mmol/L (21-28) Arterial Blood Base Excess 1 mmol/L (-3-3) Oxyhemoglobin 96.2 % Methemoglobin 0.0 % (0.0-1.9) Carbon Monoxide, Quantitative 1.3 % (0.0-1.9) FiO2 21 White Blood Count 7.4 x10^3/uL (4.0-11.0) Red Blood Count 5.48 x10^6/uL (4.30-5.70) Hemoglobin 17.0 g/dL (13.0-17.5) Hematocrit 48.2 % (39.0-53.0) Mean Corpuscular Volume 88 fL (79-100) Mean Corpuscular Hemoglobin 31 pg (25-35) Mean Corpuscular Hemoglobin Concent 35 g/dL (31-37) Red Cell Distribution Width 13.4 % (11.5-14.5) Platelet Count 280 x10^3/uL (140-400) Neutrophils (%) (Auto) 61 % (31-73) Lymphocytes (%) (Auto) 25 % (24-48) Monocytes (%) (Auto) 8 % (0-9) Eosinophils (%) (Auto) 4 % (0-3) Basophils (%) (Auto) 1 % (0-3) Neutrophils # (Auto) 4.5 x10^3uL (1.8-7.7) Lymphocytes # (Auto) 1.9 x10^3/uL (1.0-4.8) Monocytes # (Auto) 0.6 x10^3/uL (0.0-1.1) Eosinophils # (Auto) 0.3 x10^3/uL (0.0-0.7) Basophils # (Auto) 0.1 x10^3/uL (0.0-0.2) Prothrombin Time 13.0 SEC (11.7-14.0) Prothromb Time International Ratio 1.0 (0.8-1.1) Sodium Level 136 mmol/L (136-145) Potassium Level 4.3 mmol/L (3.5-5.1) Chloride Level 98 mmol/L (98-107) Carbon Dioxide Level 30 mmol/L (21-32) Anion Gap 8 (6-14) Blood Urea Nitrogen 22 mg/dL (8-26) Creatinine 1.4 mg/dL (0.7-1.3) Estimated GFR (Cockcroft-Gault) 54.1 BUN/Creatinine Ratio 16 (6-20) Glucose Level 368 mg/dL (70-99) Glucose (Fingerstick) 397 mg/dL (70-99) 161 mg/dL (70-99) Calcium Level 9.3 mg/dL (8.5-10.1) Magnesium Level 2.2 mg/dL (1.8-2.4) Total Bilirubin 0.4 mg/dL (0.2-1.0) Aspartate Amino Transf (AST/SGOT) 15 U/L (15-37) Alanine Aminotransferase (ALT/SGPT) 23 U/L (16-63) Alkaline Phosphatase 122 U/L (46-116) Creatine Kinase 62 U/L (39-308) Creatine Kinase MB (Mass) 3.3 ng/mL (0.0-3.6) Creatine Kinase MB Relative Index 5.3 % (0-4) Troponin I Quantitative < 0.017 ng/mL (0.000-0.055) DZ-Deu-D-Type Natriuretic Peptide 1720 pg/mL (0-124) Total Protein 8.4 g/dL (6.4-8.2) Albumin 3.3 g/dL (3.4-5.0) Albumin/Globulin Ratio 0.6 (1.0-1.7) Lipase 225 U/L (73-393) Acetone Level Neg (NEG) Test 09/04/18 17:19 09/04/18 20:44 09/05/18 04:25 09/05/18 07:29 Glucose (Fingerstick) 123 mg/dL (70-99) 344 mg/dL (70-99) 380 mg/dL (70-99) White Blood Count 8.7 x10^3/uL (4.0-11.0) Red Blood Count 5.16 x10^6/uL (4.30-5.70) Hemoglobin 16.0 g/dL (13.0-17.5) Hematocrit 46.5 % (39.0-53.0) Mean Corpuscular Volume 90 fL (79-100) Mean Corpuscular Hemoglobin 31 pg (25-35) Mean Corpuscular Hemoglobin Concent 34 g/dL (31-37) Red Cell Distribution Width 13.6 % (11.5-14.5) Platelet Count 260 x10^3/uL (140-400) Neutrophils (%) (Auto) 59 % (31-73) Lymphocytes (%) (Auto) 30 % (24-48) Monocytes (%) (Auto) 6 % (0-9) Eosinophils (%) (Auto) 4 % (0-3) Basophils (%) (Auto) 1 % (0-3) Neutrophils # (Auto) 5.1 x10^3uL (1.8-7.7) Lymphocytes # (Auto) 2.6 x10^3/uL (1.0-4.8) Monocytes # (Auto) 0.6 x10^3/uL (0.0-1.1) Eosinophils # (Auto) 0.4 x10^3/uL (0.0-0.7) Basophils # (Auto) 0.1 x10^3/uL (0.0-0.2) Sodium Level 134 mmol/L (136-145) Potassium Level 3.9 mmol/L (3.5-5.1) Chloride Level 99 mmol/L (98-107) Carbon Dioxide Level 27 mmol/L (21-32) Anion Gap 8 (6-14) Blood Urea Nitrogen 17 mg/dL (8-26) Creatinine 1.2 mg/dL (0.7-1.3) Estimated GFR (Cockcroft-Gault) 64.6 Glucose Level 420 mg/dL (70-99) Calcium Level 8.6 mg/dL (8.5-10.1) ECHOCARDIOGRAM ECHOCARDIOGRAM <Conclusion> TTE The Left Ventricle is moderate to severely dilated. Left ventricle ejection fraction is severely impaired. The Ejection Fraction is 15-20%. There is severe global hypokinesis of the left ventricle. There is no significant aortic valvular stenosis. Doppler and Color Flow revealed trace aortic regurgitation. Doppler and Color Flow revealed no mitral valve regurgitation noted. Doppler and Color Flow revealed trace tricuspid regurgitation. The PA pressure was estimated at 28 mmHg. DATE: 09/05/18931 <Conclusion> LENNY The Left Ventricle is mildly dilated. Left ventricle systolic function is severely impaired. The Ejection Fraction is 15-20%. Systolic function is mildly to moderately reduced. There is no significant aortic valvular stenosis. Doppler and Color Flow revealed no significant aortic regurgitation. Doppler and Color Flow revealed trace mitral regurgitation. Doppler and Color Flow revealed mild to moderate tricuspid regurgitation. No vegetations identified on this study. DICTATED and SIGNED BY: MARTIN BLOOM MD DATE: 10/16/16 4371 ASSESSMENT/PLAN ASSESSMENT/PLAN 1. Uncontrolled DM: per PCP 2. Noncompliance: ran out of meds for 3 months. 3. CAD: past CABG 2013, clinically stable 4. ICM: EF 15-20% unchanged from previous 5. Chronic systolic CHF: compensated 6. COPD with continued tobaccoism 7. HTN: controlled 8. HLP Recommendations 1. Discussed to call and follow up in office 2-3 weeks and importance of treatment compliance 2. Continue with current secondary prevention measures and lasix therapy. 3. He will need an AICD but will need to ascertain compliance as an outpt 4. discussed with RN in regards to daily wt, 2L FR and acute CHF prevention measures. 5. Pt currently lives with friend and no transportation means. Consult social service WANDY POLLOCK APRN Sep 05, 2018 12:14
[2018-09-05 12:35] LABS: CHOLESTEROL/HDL RATIO 4.1
[2018-09-05] MEDS: INSULIN LISPRO 300 UNITS/3 ML INSULN.PEN. SQ SCH ×3 (13:27→17:06)
[2018-09-05] MEDS ORDERED: INSULIN LISPRO 300 UNITS/3 ML INSULN.PEN. SQ ONE (14:00)
[2018-09-05] MEDS: SIMVASTATIN 20 MG TABLET PO SCH (21:08)
[2018-09-06 01:13] LABS: HEMOGLOBIN A1C >15.5 % (4.8-5.6)
[2018-09-06 03:00] VITALS: BP 115/70
[2018-09-06 07:00] VITALS: BP_SYST 102; BP_SYST 104; BP_DIAS 49; BP_DIAS 68
[2018-09-06] MEDS ORDERED: FURO-68 PO (07:48)
[2018-09-06] MEDS ORDERED: SIMV40TA3 PO (07:48)
[2018-09-06] MEDS ORDERED: METO-239 PO (07:48)
[2018-09-06] MEDS ORDERED: GABA-585 PO (07:48)
[2018-09-06] MEDS ORDERED: INSU100I11 SQ (07:48)
[2018-09-06] MEDS ORDERED: INSU100I13 SQ (07:48)
[2018-09-06] MEDS ORDERED: SPIR25TA PO (07:48)
[2018-09-06] MEDS: SPIRONOLACTONE 25 MG TABLET PO SCH (08:39)
[2018-09-06] MEDS: METOPROLOL SUCC 24HR ER 25 MG TAB.ER.24H. PO SCH (08:39)
[2018-09-06] MEDS: ASPIRIN CHEWABLE 81 MG TABLET. PO SCH (08:39)
[2018-09-06] MEDS: GABAPENTIN 100 MG CAPSULE. PO SCH (08:39)
[2018-09-06] MEDS: INSULIN LISPRO 300 UNITS/3 ML INSULN.PEN. SQ SCH ×2 (08:42→08:43)
[2018-09-06] MEDS: FUROSEMIDE 40 MG TABLET. PO SCH (09:00)
--- NOTE | 2018-09-06 09:13 | PDOC3 ---
Discharge Summary Visit Information Date of Admission: Sep 04, 2018 Date of Discharge: Sep 06, 2018 Admitting Diagnosis Comment: HYPERTENSIVE URGENCY - resolved NONCOMPLIANCE - off meds x 3 months METH ABUSE CHF exacerbation, systolic NYHA III HX CArdiomyopathy with low EF 15-20% - echo 09/05/18 UNCONTROLLED DIABETES with hgba1c > 15 Final Diagnosis Problems Medical Problems: (1) Diabetic neuropathy Status: Acute (2) HTN (hypertension) Status: Acute (3) Hyperglycemia Status: Acute Brief Hospital Course Allergies Allergies Coded Allergies Type Severity Reaction Last Updated Verified No Known Drug Allergies 10/16/16 No Vital Signs Vital Signs Date Time Temp Pulse Resp B/P (MAP) Pulse Ox O2 Delivery O2 Flow Rate FiO2 09/06/18 08:39 72 104/68 09/06/18 07:00 97.7 18 100 Room Air 97.7 Lab Results Laboratory Tests Test 09/04/18 12:50 09/04/18 12:59 09/04/18 13:00 09/04/18 16:27 Urine Collection Type Unknown Urine Color Yellow Urine Clarity Clear Urine pH 5.5 Urine Specific [place] >=1.030 Urine Protein 30 mg/dL (NEG-TRACE) Urine Glucose (UA) >=1000 mg/dL (NEG) Urine Ketones (Stick) Negative mg/dL (NEG) Urine Blood Small (NEG) Urine Nitrite Negative (NEG) Urine Bilirubin Negative (NEG) Urine Urobilinogen Dipstick 0.2 mg/dL (0.2 mg/dL) Urine Leukocyte Esterase Negative (NEG) Urine RBC 3-5 /HPF (0-2) Urine WBC 1-4 /HPF (0-4) Urine Squamous Epithelial Cells Occ /LPF Urine Bacteria Few /HPF (0-FEW) Urine Mucus Slight /LPF Urine Opiates Screen Neg (NEG) Urine Methadone Screen Neg (NEG) Urine Barbiturates Neg (NEG) Urine Phencyclidine Screen Neg (NEG) Urine Amphetamine/Methamphetamine Pos (NEG) Urine Benzodiazepines Screen Neg (NEG) Urine Cocaine Screen Neg (NEG) Urine Cannabinoids Screen Neg (NEG) Urine Ethyl Alcohol Neg (NEG) O2 Saturation 98 % (92-99) Arterial Blood pH 7.42 (7.35-7.45) Arterial Blood pCO2 at Patient Temp 40 mmHg (35-46) Arterial Blood pO2 at Patient Temp 96 mmHg (75-108) Arterial Blood HCO3 25 mmol/L (21-28) Arterial Blood Base Excess 1 mmol/L (-3-3) Oxyhemoglobin 96.2 % Methemoglobin 0.0 % (0.0-1.9) Carbon Monoxide, Quantitative 1.3 % (0.0-1.9) FiO2 21 White Blood Count 7.4 x10^3/uL (4.0-11.0) Red Blood Count 5.48 x10^6/uL (4.30-5.70) Hemoglobin 17.0 g/dL (13.0-17.5) Hematocrit 48.2 % (39.0-53.0) Mean Corpuscular Volume 88 fL (79-100) Mean Corpuscular Hemoglobin 31 pg (25-35) Mean Corpuscular Hemoglobin Concent 35 g/dL (31-37) Red Cell Distribution Width 13.4 % (11.5-14.5) Platelet Count 280 x10^3/uL (140-400) Neutrophils (%) (Auto) 61 % (31-73) Lymphocytes (%) (Auto) 25 % (24-48) Monocytes (%) (Auto) 8 % (0-9) Eosinophils (%) (Auto) 4 % (0-3) Basophils (%) (Auto) 1 % (0-3) Neutrophils # (Auto) 4.5 x10^3uL (1.8-7.7) Lymphocytes # (Auto) 1.9 x10^3/uL (1.0-4.8) Monocytes # (Auto) 0.6 x10^3/uL (0.0-1.1) Eosinophils # (Auto) 0.3 x10^3/uL (0.0-0.7) Basophils # (Auto) 0.1 x10^3/uL (0.0-0.2) Prothrombin Time 13.0 SEC (11.7-14.0) Prothromb Time International Ratio 1.0 (0.8-1.1) Sodium Level 136 mmol/L (136-145) Potassium Level 4.3 mmol/L (3.5-5.1) Chloride Level 98 mmol/L (98-107) Carbon Dioxide Level 30 mmol/L (21-32) Anion Gap 8 (6-14) Blood Urea Nitrogen 22 mg/dL (8-26) Creatinine 1.4 mg/dL (0.7-1.3) Estimated GFR (Cockcroft-Gault) 54.1 BUN/Creatinine Ratio 16 (6-20) Glucose Level 368 mg/dL (70-99) Glucose (Fingerstick) 397 mg/dL (70-99) 161 mg/dL (70-99) Calcium Level 9.3 mg/dL (8.5-10.1) Magnesium Level 2.2 mg/dL (1.8-2.4) Total Bilirubin 0.4 mg/dL (0.2-1.0) Aspartate Amino Transf (AST/SGOT) 15 U/L (15-37) Alanine Aminotransferase (ALT/SGPT) 23 U/L (16-63) Alkaline Phosphatase 122 U/L (46-116) Creatine Kinase 62 U/L (39-308) Creatine Kinase MB (Mass) 3.3 ng/mL (0.0-3.6) Creatine Kinase MB Relative Index 5.3 % (0-4) Troponin I Quantitative < 0.017 ng/mL (0.000-0.055) MA-Ptr-V-Type Natriuretic Peptide 1720 pg/mL (0-124) Total Protein 8.4 g/dL (6.4-8.2) Albumin 3.3 g/dL (3.4-5.0) Albumin/Globulin Ratio 0.6 (1.0-1.7) Lipase 225 U/L (73-393) Acetone Level Neg (NEG) Test 09/04/18 17:19 09/04/18 20:44 09/05/18 04:25 09/05/18 07:29 Glucose (Fingerstick) 123 mg/dL (70-99) 344 mg/dL (70-99) 380 mg/dL (70-99) White Blood Count 8.7 x10^3/uL (4.0-11.0) Red Blood Count 5.16 x10^6/uL (4.30-5.70) Hemoglobin 16.0 g/dL (13.0-17.5) Hematocrit 46.5 % (39.0-53.0) Mean Corpuscular Volume 90 fL (79-100) Mean Corpuscular Hemoglobin 31 pg (25-35) Mean Corpuscular Hemoglobin Concent 34 g/dL (31-37) Red Cell Distribution Width 13.6 % (11.5-14.5) Platelet Count 260 x10^3/uL (140-400) Neutrophils (%) (Auto) 59 % (31-73) Lymphocytes (%) (Auto) 30 % (24-48) Monocytes (%) (Auto) 6 % (0-9) Eosinophils (%) (Auto) 4 % (0-3) Basophils (%) (Auto) 1 % (0-3) Neutrophils # (Auto) 5.1 x10^3uL (1.8-7.7) Lymphocytes # (Auto) 2.6 x10^3/uL (1.0-4.8) Monocytes # (Auto) 0.6 x10^3/uL (0.0-1.1) Eosinophils # (Auto) 0.4 x10^3/uL (0.0-0.7) Basophils # (Auto) 0.1 x10^3/uL (0.0-0.2) Sodium Level 134 mmol/L (136-145) Potassium Level 3.9 mmol/L (3.5-5.1) Chloride Level 99 mmol/L (98-107) Carbon Dioxide Level 27 mmol/L (21-32) Anion Gap 8 (6-14) Blood Urea Nitrogen 17 mg/dL (8-26) Creatinine 1.2 mg/dL (0.7-1.3) Estimated GFR (Cockcroft-Gault) 64.6 Glucose Level 420 mg/dL (70-99) Hemoglobin A1c >15.5 % (4.8-5.6) Calcium Level 8.6 mg/dL (8.5-10.1) Triglycerides Level 291 mg/dL (0-150) Cholesterol Level 160 mg/dL (0-200) LDL Cholesterol, Calculated 63 mg/dL (0-100) VLDL Cholesterol, Calculated 58 mg/dL (0-40) Non-HDL Cholesterol Calculated 121 mg/dL (0-129) HDL Cholesterol 39 mg/dL (40-60) Cholesterol/HDL Ratio 4.1 Test 09/05/18 11:49 09/05/18 16:37 09/05/18 21:06 09/06/18 07:47 Glucose (Fingerstick) 374 mg/dL (70-99) 162 mg/dL (70-99) 174 mg/dL (70-99) 280 mg/dL (70-99) Laboratory Tests Test 09/05/18 11:49 09/05/18 16:37 09/05/18 21:06 09/06/18 07:47 Glucose (Fingerstick) 374 mg/dL (70-99) 162 mg/dL (70-99) 174 mg/dL (70-99) 280 mg/dL (70-99) Brief Hospital Course is a 47 old male who has diabetes for more than 10 years and has neuropathy on gabapentin 100 mg by mouth 3 times a day, also hypertension, off meds for 3 months and comes in with a high blood pressure and high blood sugar. It took 2 days for me to fix his blood pressure and blood sugar. We have come up with a regimen which includes: Lantus 30 units daily at bedtime, NovoLog 10 units subcutaneous 3 times a day with meals, continue his home Aldactone, lisinopril, metoprolol, Lasix. He is on the right cardiac medications but he is not taking them because of cost issues. He was just evicted from his home. Echocardiogram shows an EF of 15-20%, cards consulted. Did recommend defibrillator but he has to prove compliance first. I did heavily educated emphasized this. All Rx I have provided including his home meds. He does understand and I do believe he will comply. His hemoglobin A1c is greater than 15 on this admission. Discharge disposition to home Medications as above, all Rx on chart Procedures performed echocardiogram Consults performed cardiology Time spent discharging 38 minutes, greater than 60% DC education compliance education etc. Discharge Information Condition at Discharge: Improved, Stable Follow Up: Weeks (2-3 weeks cards as OP) Disposition/Orders: D/C to Home Scheduled Aspirin (Aspirin) 81 Mg Tab.chew, 1 TAB PO DAILY, #30 Ref 3 Prescribed by: PAIGE LUNA on 03/15/17853 Last Action: Continued on 09/04/181948 by MARIBEL HERRERA MD Furosemide (Lasix) 40 Mg Tablet, 1 TAB PO DAILY, #90 Ref 1 Prescribed by: PAIGE LUNA on 03/15/17853 Last Action: Continued on 09/04/181948 by MARIBEL HERRERA MD Gabapentin (Gabapentin) 100 Mg Capsule, 100 MG PO TID for 60 Days, #180 Prescribed by: PAIGE LUNA on 03/15/17853 Last Action: Continued on 09/04/181948 by MARIBEL HERRERA MD Insulin Glargine,Hum.rec.anlog (Toujeo Solostar) 300 Unit/1 Ml Insuln.pen, 15 UNIT SQ DAILY, (Reported) Entered as Reported by: LISA GARY on 08/06/161710 Last Action: Converted on 09/04/181948 by MARIBEL HERRERA MD Lisinopril (Lisinopril) 5 Mg Tablet, 1 TAB PO DAILY, #30 Ref 5 Prescribed by: PAIGE LUNA on 03/15/17853 Last Action: Converted on 09/04/181948 by MARIBEL HERRERA MD Metoprolol Succinate (Metoprolol Succinate ( Xl )) 25 Mg Tab.er.24h, 1 TAB PO DAILY, #30 Ref 5 Prescribed by: PAIGE LUNA on 03/15/17853 Last Action: Continued on 09/04/181948 by MARIBEL HERRERA MD Simvastatin (Simvastatin) 40 Mg Tablet, 1 TAB PO QHS, #30 Ref 5 (Reported) Entered as Reported by: LISA GARY on 08/06/161710 Last Action: Converted on 09/04/181948 by MARIBEL HERRERA MD Spironolactone (Aldactone) 25 Mg Tablet, 1 TAB PO DAILY, #90 Ref 1 Prescribed by: PAIGE LUNA on 03/15/17853 Last Action: Converted on 09/04/181948 by MD JEREMY JUAN CHERRIE Y MD Sep 06, 2018 09:13
[2018-09-06 09:59] VITALS: BP 115/72
[2018-09-06] MEDS: LISINOPRIL 5 MG TABLET. PO SCH (09:59)
--- NOTE | 2018-09-06 11:14 | PDOC ---
CARDIO Progress Notes Date and Time Date of Service 09/06/18 Time of Evaluation 1108 Subjective Subjective: No Chest Pain, No shortness of breath, No Palpitations Vitals Vitals Vital Signs Date Time Temp Pulse Resp B/P (MAP) Pulse Ox O2 Delivery O2 Flow Rate FiO2 09/06/18 09:59 83 115/72 09/06/18 07:00 97.7 18 100 Room Air 97.7 Weight Weight [ ] Input and Output Intake and Output Intake and Output 09/06/18 07:00 Intake Total 1440 ml Output Total 700 ml Balance 740 ml Intake Oral 1440 ml Output Urine Total 700 ml # Voids 8 # Bowel Movements 2 Laboratory Labs Laboratory Tests Test 09/05/18 11:49 09/05/18 16:37 09/05/18 21:06 09/06/18 07:47 Glucose (Fingerstick) 374 mg/dL (70-99) 162 mg/dL (70-99) 174 mg/dL (70-99) 280 mg/dL (70-99) Physical Exam HEENT: Neck Supple W Full Motion Chest: Symmetric LUNGS: Clear to Auscultation Heart: S1S2, RRR, no gallops Abdomen: Soft N/T Extremities: Other (trace bi LE edema ) Neurology: alert, oriented, follow commands Assessment Assessment 1. Chronic systolic CHF with ICM; LVEF 15-20% unchanged from previous. compensated. 2. CAD; past CABG 2013, clinically stable 3. Noncompliance; ran out of meds for 3 months. 4. Uncontrolled DM; per PCP 5. COPD; with continued tobaccoism 6. Hypertension; controlled 7. Hyperlipidemia;statin 8. Substance abuse; UDS positive for methamphetamines; discussed/encouraged abstinence Recommendations Optimization therapy; 2L FR. Daily weights. Discussed and encouraged with patient Continue with current secondary prevention measures and Lasix therapy. Follow up in our office in 2-3 weeks Consider AICD placement in primary prevention of SCD, if compliance can be established, on an outpatient basis LISA KUHN APRN Sep 06, 2018 11:14
[2018-09-06] MEDS ORDERED: INSULIN GLARGINE 300 UNITS/3 ML INSULN.PEN. SQ SCH ×2 (21:00)
== END 2018-09-06 11:30 | disposition left against medical advice (07) | DRG 291 ==
LOC: ER 12:37 → 5 NORTH 15:33
PROVIDERS: ADMIT Family Medicine; ATTEND Family Medicine
DX: I13.0 Hypertensive heart and chronic kidney disease with heart failure and stage 1 through stage 4 chronic kidney disease, or unspecified chronic kidney disease (principal); I50.33 Acute on chronic diastolic (congestive) heart failure; I16.0 Hypertensive urgency; I25.5 Ischemic cardiomyopathy; E10.65 Type 1 diabetes mellitus with hyperglycemia; E10.22 Type 1 diabetes mellitus with diabetic chronic kidney disease; E10.40 Type 1 diabetes mellitus with diabetic neuropathy, unspecified; E78.00 Pure hypercholesterolemia, unspecified; E78.5 Hyperlipidemia, unspecified; M54.5 Low back pain; F15.10 Other stimulant abuse, uncomplicated; N18.9 Chronic kidney disease, unspecified; F17.210 Nicotine dependence, cigarettes, uncomplicated; F41.9 Anxiety disorder, unspecified; Z87.01 Personal history of pneumonia (recurrent); J44.9 Chronic obstructive pulmonary disease, unspecified; I25.10 Atherosclerotic heart disease of native coronary artery without angina pectoris; Z79.4 Long term (current) use of insulin; Z86.73 Personal history of transient ischemic attack (TIA), and cerebral infarction without residual deficits; Z91.19 Patient's noncompliance with other medical treatment and regimen; Z95.1 Presence of aortocoronary bypass graft; Z87.11 Personal history of peptic ulcer disease; Z79.899 Other long term (current) drug therapy
CPT/HCPCS: 36415; 36600; 71045; 80048; 80053; 80061; 80307; 81001; 82010; 82550; 82553; 82805; 82962; 83036; 83690; 83735; 83880; 84484; 85025; 85610; 93005; 93306; 96361; 96374; J1815; J7030; 99285-25